=== PATIENT | male | born 1935 | race Asian ===

== ENCOUNTER 2019-11-17 16:12 | Inpatient (IN) | payer MEDICARE, OTHER ==
[~2019-11-17] VITALS: Ht 172.7 cm; Wt 83.0 kg
--- NOTE | 2019-11-17 16:27 | Emergency Room Report ---
History of Present Illness General Chief Complaint: Altered Level of Consciousness Source: Patient, EMS Present Illness HPI Disclaimer: Please note that this report is being documented using [employer] technology. This can lead to erroneous entry secondary to incorrect interpretation by the dictating instrument. HPI: 84-year-old male history of pancreatic cancer last chemotherapy session 1 week ago, diabetes presents for evaluation of shortness of breath and fever as well as weakness. He is primarily Georgian speaking and history was taken with the use of an pest locator. Patient was reportedly very weak and somewhat confused according to family. He went to see his PMD earlier today and after the visit found him so profoundly weak and confused. He was found to have a fever at home 100.4 degrees. EMS noted coughing and shortness of breath. Patient states that she was started today. Denies vomiting, diarrhea. Denies nasal congestion, shortness of breath, chest pain. PMH: Diabetes, pancreatic cancer PSH: Reviewed Allergies: Aspirin Social Hx: Reviewed Allergies: Coded Allergies: ASPIRIN (Verified Allergy, Unknown, 11/17/19) COVID-19 Screening Contact w/high risk pt: No Recent Travel to affected area: No Experienced COVID-19 symptoms?: Yes COVID-19 symptoms experienced: Fever (T>100.4F or >38C) COVID-19 Testing performed HORTICULTURAL SERVICES SUPERVISOR: No Review of Systems All Other Systems: negative except mentioned in HPI Physical Exam Vital Signs Date Time Temp Pulse Resp B/P (MAP) Pulse Ox O2 Delivery O2 Flow Rate FiO2 11/17/19 16:05 100.4 97 20 119/50 (73) 99 Room Air General: Awake awake, slightly confused though oriented to self, place, time HEENT: NC/AT. EOMI. Cardiovascular: RRR. S1 and S2 normal. No murmur appreciated Resp: Mild tachypnea, normal work of breathing, intermittent cough. Abdomen: Abdomen is soft, nondistended. Nontender Skin: Intact. No abrasions, laceration or rash over the exposed skin MSK: Normal tone and bulk. Moving all extremities. No obvious deformity. Neuro: Awake, slightly confused, oriented to self, place and time but not situation. Procedures Critical Care Time Critical Care Time Total critical care time: Approximately 31 minutes Due to a high probability of clinically significant, life threatening deterioration, the patient required the highest level of preparedness to intervene emergently and I personally spent this critical care time directly and personally managing the patient. This critical care time included obtaining a history, examining the patient, pulse oximetry, ordering and reviewing studies , ordering treatments, evaluating response to treatment and updating management plan as needed, frequent reassessment and discussion with other providers as well as arranging for ultimate disposition. This critical to care time was performed to assess and manage the high probability of life-threatening deterioration that could result in multiorgan failure. This critical care time is separate from the separately billable procedures and treating other patients. Medical Decision Making Diagnostic Impression: Primary Impression: Suspected 2019 novel coronavirus infection Additional Impressions: Sepsis KAITLYNN (acute kidney injury) Dehydration ER Course 84-year-old male presents for evaluation of fever and altered mental status. Patient is awake and alert though seems somewhat confused. He has difficulty with history unknown baseline. He arrives febrile and slightly tachycardic. Differential includes was not limited to viral syndrome, upper respiratory infection, novel coronavirus 19, pneumonia, bronchitis, UTI, dehydration, electrolyte abnormality, sepsis to name a few. EKG is nonischemic. Labs show an elevated white count. The patient was treated with empiric antibiotics. Chest x-ray does not show obvious sign of infiltrate. COVID-19 swab ordered and the patient will be kept in isolation. Initial lactate elevated and the patient receiving gentle IV fluids. Over concern of COVID-19 and flash pulmonary edema will provide gradual IV hydration as opposed to the 30 cc/kg sepsis bundle bolus. Patient will be admitted to panel physician. Laboratory Tests Test 11/17/19 16:45 11/17/19 18:05 11/17/19 18:10 White Blood Count 20.9 K/UL (4.8-10.8) H Red Blood Count 3.74 M/UL (4.70-6.10) L Hemoglobin 12.3 G/DL (14.2-18.0) L Hematocrit 37.4 % (42.0-52.0) L Mean Corpuscular Volume 100 FL (80-99) H Mean Corpuscular Hemoglobin 32.9 PG (27.0-31.0) H Mean Corpuscular Hemoglobin Concent 32.9 G/DL (32.0-36.0) Red Cell Distribution Width 18.3 % (11.6-14.8) H Platelet Count 239 K/UL (150-450) Mean Platelet Volume 7.0 FL (6.5-10.1) Neutrophils (%) (Auto) % (45.0-75.0) Lymphocytes (%) (Auto) % (20.0-45.0) Monocytes (%) (Auto) % (1.0-10.0) Eosinophils (%) (Auto) % (0.0-3.0) Basophils (%) (Auto) % (0.0-2.0) Differential Total Cells Counted 100 Neutrophils % (Manual) 77 % (45-75) H Lymphocytes % (Manual) 2 % (20-45) L Monocytes % (Manual) 10 % (1-10) Eosinophils % (Manual) 1 % (0-3) Basophils % (Manual) 0 % (0-2) Band Neutrophils 10 % (0-8) H Platelet Estimate Adequate Platelet Morphology Normal Polychromasia 1+ Anisocytosis 2+ Macrocytosis 1+ Prothrombin Time 17.4 SEC (9.30-11.50) H Prothrombin Time INR 1.6 (0.9-1.1) H Activated Partial Thromboplast Time 24 SEC (23-33) Sodium Level 137 MMOL/L (136-145) Potassium Level 4.3 MMOL/L (3.5-5.1) Chloride Level 101 MMOL/L (98-107) Carbon Dioxide Level 22 MMOL/L (21-32) Anion Gap 14 mmol/L (5-15) Blood Urea Nitrogen 31 mg/dL (7-18) H Creatinine 1.6 MG/DL (0.55-1.30) H Estimated Glomerular Filtration Rate 41.4 mL/min (>60) Glucose Level 210 MG/DL (74-106) H Lactic Acid Level 3.40 mmol/L (0.4-2.0) H Pending Uric Acid 4.9 MG/DL (2.6-7.2) Calcium Level 9.2 MG/DL (8.5-10.1) Phosphorus Level 3.1 MG/DL (2.5-4.9) Magnesium Level 2.2 MG/DL (1.8-2.4) Total Bilirubin 2.5 MG/DL (0.2-1.0) H Direct Bilirubin 1.1 MG/DL (0.0-0.3) H Aspartate Amino Transferase (AST) 53 U/L (15-37) H Alanine Aminotransferase (ALT) 67 U/L (12-78) Alkaline Phosphatase 154 U/L (46-116) H Total Creatine Kinase 72 U/L (26-308) Creatine Kinase MB < 0.5 NG/ML (0.0-3.6) Creatine Kinase MB Relative Index 0.6 Troponin I 0.000 ng/mL (0.000-0.056) Pro-B-Type Natriuretic Peptide 337 pg/mL (0-125) H Total Protein 7.3 G/DL (6.4-8.2) Albumin 3.5 G/DL (3.4-5.0) Globulin 3.8 g/dL Albumin/Globulin Ratio 0.9 (1.0-2.7) L Urine Color Brown Urine Appearance Slightly cloudy Urine pH 5 (4.5-8.0) Urine Specific [place] 1.015 (1.005-1.035) Urine Protein 2+ (NEGATIVE) H Urine Glucose (UA) 4+ (NEGATIVE) H Urine Ketones 1+ (NEGATIVE) H Urine Blood 1+ (NEGATIVE) H Urine Nitrite Negative (NEGATIVE) Urine Bilirubin 2+ (NEGATIVE) H Urine Ictotest Negative (NEGATIVE) Urine Urobilinogen 8 MG/DL (0.0-1.0) H Urine Leukocyte Esterase 1+ (NEGATIVE) H Urine RBC 2-4 /HPF (0 - 0) H Urine WBC 2-4 /HPF (0 - 0) Urine Squamous Epithelial Cells Occasional /LPF Urine Bacteria Few /HPF (NONE) Urine Mucus Many /LPF (NONE/OCC) H EKG Diagnostic Results EKG Time: 16:43 Rate: normal Rhythm: NSR ST Segments: no acute changes Other Impression Sinus rhythm, right bundle branch block pattern, difficult to interpret axis, no obvious ischemic changes. Rhythm Strip Diag. Results Rhythm Strip Time: 16:43 EP Interpretation: yes Rate: 90s Rhythm: NSR, no PVC's, no ectopy Chest X-Ray Diagnostic Results Chest X-Ray Diagnostic Results : Chest X-Ray Ordered: Yes # of Views/Limited/Complete: 1 View Indication: Shortness of Breath EP Interpretation: Yes Interpretation: no consolidation, no effusion, no pneumothorax, no acute cardiopulmonary disease Impression: No acute disease Electronically Signed by: Electronically signed by Dr. Dave Vernon Reevaluation Time: 19:40 Last Vital Signs Date Time Temp Pulse Resp B/P (MAP) Pulse Ox O2 Delivery O2 Flow Rate FiO2 11/17/19 16:05 100.4 97 20 119/50 (73) 99 Room Air Reevaluation Impression Sepsis reevaluation: I, Dr. Dave Vernon, reevaluated the patient Capillary refill: Less than 2 seconds Heart rate: 80s Respiratory rate: 19 Initial Lactate: 3.4 Repeat Lactate: 3.3 Pressors: Not indicated No signs of fluid overload Repeat lactate was obtained prior to the patient receiving full IV fluids. He continues to receive IV fluids. Fever improving. Patient received antibiotics. Will be admitted to panel physician in respiratory isolation over suspicions of COVID-19. Disposition: ADMITTED INPATIENT Condition: Serious Dave Vernon MD November 17, 2019 16:27
[2019-11-17 16:30] VITALS: BP 125/87
--- NOTE | 2019-11-17 16:30 | NUR ---
ED Nurse Note: Pt was brought in by ambulance for ALOC and weakness. Pt upon arrival is a&ox3, slovak speaking. Pt has history of unknown cancer. Pt has been placed in isolation room with COVID precautions.
[2019-11-17 17:05] LABS: HEMATOCRIT 37.4 % (42.0-52.0); HEMOGLOBIN 12.3 G/DL (14.2-18.0); MEAN CORPUSCULAR VOLUME 100 FL (80-99); PLATELET COUNT 239 K/UL (150-450); RED BLOOD COUNT 3.74 M/UL (4.70-6.10); RED CELL DISTRIBUTION WIDTH 18.3 % (11.6-14.8); WHITE BLOOD COUNT 20.9 K/UL (4.8-10.8)
[2019-11-17 17:14] LABS: INR 1.6 (0.9-1.1)
--- NOTE | 2019-11-17 17:15 | Diagnostic Imaging Report ---
Procedure: XRAY Chest 1v Reason for study: Reason For Exam: SOB Comparison films: None. FINDINGS: A single one view chest is obtained. Vascularity is normal. The lung dominguez are clear bilaterally. Cardiac and mediastinal silhouette are within normal limits. CP angles are sharp. Aorta is tortuous. IMPRESSION: NO ACUTE CARDIOPULMONARY DISEASE.
[2019-11-17 17:17] LABS: ANION GAP 14 mmol/L (5-15); BLOOD UREA NITROGEN 31 mg/dL (7-18); CALCIUM 9.2 MG/DL (8.5-10.1); CARBON DIOXIDE 22 MMOL/L (21-32); CHLORIDE 101 MMOL/L (98-107); CREATININE 1.6 MG/DL (0.55-1.30); POTASSIUM 4.3 MMOL/L (3.5-5.1); SODIUM 137 MMOL/L (136-145)
--- NOTE | 2019-11-17 17:22 | NUR ---
ED Nurse Note: Patient's family member called here @ [phone]. Sander Bailon
[2019-11-17 17:33] LABS: ALANINE AMINOTRANSFERASE 67 U/L (12-78); ALBUMIN 3.5 G/DL (3.4-5.0); ALBUMIN/GLOBULIN RATIO 0.9 (1.0-2.7); ALKALINE PHOSPHATASE 154 U/L (46-116); ASPARTATE AMINO TRANSFERASE 53 U/L (15-37); BILIRUBIN,TOTAL 2.5 MG/DL (0.2-1.0); CKMB < 0.5 NG/ML (0.0-3.6); CREATINE KINASE 72 U/L (26-308); PHOSPHORUS 3.1 MG/DL (2.5-4.9)
[2019-11-17 17:38] LABS: BILIRUBIN,DIRECT 1.1 MG/DL (0.0-0.3)
[2019-11-17] MEDS ORDERED: Vancomycin 1.5 GM in NS 275 ML IVPB ONE (17:45)
[2019-11-17] MEDS ORDERED: Piperacillin/Tazobactam 3.375 GM in NS 110 ML IVPB ONE (17:45)
--- NOTE | 2019-11-17 18:15 | NUR ---
ED Nurse Note: Lactic reflux sent.
[2019-11-17 18:17] LABS: APPEARANCE,URINE SLIGHTLY CLOUDY; BILIRUBIN, URINE 2+ (NEGATIVE); COLOR,URINE BROWN; GLUCOSE, URINE (UA) 4+ (NEGATIVE); KETONES,URINE 1+ (NEGATIVE); LEUKOCYTE ESTERASE ,URINE 1+ (NEGATIVE); NITRITE,URINE NEGATIVE (NEGATIVE); PH,URINE 5 (4.5-8.0); PROTEIN,URINE 2+ (NEGATIVE); UROBILINOGEN,URINE 8 MG/DL (0.0-1.0)
[2019-11-17] MEDS ORDERED: Acetaminophen 500mg (ES) tab ORAL ONE (18:30)
[2019-11-17] MEDS ORDERED: PANTOPRAZOLE SO40 MG ORAL (18:36)
[2019-11-17] MEDS ORDERED: AMLODIPINE BESYL5 MG ORAL (18:36)
[2019-11-17] MEDS ORDERED: OMEGA 3 1,0001 EACH PO (18:36)
[2019-11-17] MEDS ORDERED: VITAMIN D310 MC1 PO (18:36)
[2019-11-17] MEDS ORDERED: TRADJENTA5 MG PO (18:36)
[2019-11-17] MEDS ORDERED: FARXIGA10 MG PO (18:36)
[2019-11-17] MEDS ORDERED: GLIPIZIDE-METF1 EAC2 PO (18:36)
[2019-11-17 18:52] VITALS: BP 116/62
--- NOTE | 2019-11-17 19:10 | NUR ---
ED Nurse Note: Report received from MICHAEL Aguilera. Pt is resting in bed. NAD. Pt aware of admission to floor.
--- NOTE | 2019-11-17 19:55 | NUR ---
ED Nurse Note: Report given to MICHAEL Gutierrez.
--- NOTE | 2019-11-17 20:00 | NUR ---
ED Nurse Note: COVID swab completed and sent to lab.
--- NOTE | 2019-11-17 20:45 | NUR ---
ED Nurse Note: Pt is stable for transfer to tele unit at this time per ERMD. Pt is awake and alert and able to communicate needs. Pt is in no acute distress and vital signs are stable. Pt is ambulatory with assistance. Pt taken to the unit via gurney, connected to conveyor monitor by duy and RN. ISO precutions in place. IVs are patent and intact. Pt belongings sent with pt.
[2019-11-17 20:55] VITALS: BP 134/67
--- NOTE | 2019-11-17 20:55 | NUR ---
NURSE NOTES: Received pt from ED via gurney. Pt transferred to 219-1 without any incident. Received report from MICHAEL Diane. Pt is A/Ox3. [place] pt to room and unit. playground monitor is in placed. IV site intact, asymptomatic, and patent. Belongings list checked and signed. Bed is in the lowest position and locked. Call light and bedside table is within reach. No signs/symptoms of acute distress noted at this time. Received admission orders from Dr. Rey. Will note and carry out.
[2019-11-17] MEDS: NovoLOG Insulin Flexpen SUBQ SCH (21:15)
[2019-11-17] MEDS ORDERED: DiphenhydrAMINE 25mg Tab ORAL PRN (22:00)
[2019-11-17] MEDS ORDERED: Zolpidem 5mg tab ORAL PRN (22:00)
[2019-11-17] MEDS ORDERED: LORazepam 1mg tab ORAL PRN (22:00)
[2019-11-18] VITALS: BP 116/49
[2019-11-18 04:00] VITALS: BP 146/70
[2019-11-18] MEDS: Piperacillin/Tazobactam 3.375 GM in NS 110 ML IVPB SCH ×3 (05:39→20:48)
[2019-11-18] MEDS: NovoLOG Insulin Flexpen SUBQ SCH ×4 (06:26→20:45)
--- NOTE | 2019-11-18 07:36 | NUR ---
HAND-OFF: Report given to MICHAEL Uriarte. Plan of care endorsed.
[2019-11-18 07:46] LABS: HEMOGLOBIN 11.9 G/DL (14.2-18.0); MEAN CORPUSCULAR VOLUME 93 FL (80-99); PLATELET COUNT 187 K/UL (150-450); RED BLOOD COUNT 3.65 M/UL (4.70-6.10); RED CELL DISTRIBUTION WIDTH 16.2 % (11.6-14.8); WHITE BLOOD COUNT 13.4 K/UL (4.8-10.8)
[2019-11-18 07:55] LABS: ALANINE AMINOTRANSFERASE 63 U/L (12-78); ALBUMIN/GLOBULIN RATIO 0.9 (1.0-2.7); ALKALINE PHOSPHATASE 128 U/L (46-116); ANION GAP 11 mmol/L (5-15); ASPARTATE AMINO TRANSFERASE 40 U/L (15-37); BLOOD UREA NITROGEN 25 mg/dL (7-18); CALCIUM 8.1 MG/DL (8.5-10.1); CARBON DIOXIDE 22 MMOL/L (21-32); CHLORIDE 105 MMOL/L (98-107); CREATININE 1.1 MG/DL (0.55-1.30); POTASSIUM 3.7 MMOL/L (3.5-5.1); SODIUM 138 MMOL/L (136-145)
[2019-11-18 08:00] VITALS: BP 112/61
[2019-11-18 08:07] LABS: BILIRUBIN,DIRECT 0.7 MG/DL (0.0-0.3)
[2019-11-18] MEDS: Enoxaparin 40mg Inj SUBQ SCH (08:50)
--- NOTE | 2019-11-18 10:28 | Consultation ---
History of Present Illness General Chief Complaint: Altered Level of Consciousness Present Illness Allergies: Coded Allergies: ASPIRIN (Verified Allergy, Unknown, 11/17/19) Medication History Scheduled Amlodipine Besylate* (Amlodipine Besylate*), 5 MG ORAL DAILY, (Reported) Cholecalciferol (Vitamin D3) (Vitamin D3), Unknown Dose PO DAILY, (Reported) Dapagliflozin Propanediol (Farxiga), 10 MG PO DAILY, (Reported) Glipizide/Metformin Hcl (Glipizide-Metformin 5-500 Mg), 1 EACH PO BID, (Reported ) Linagliptin (Tradjenta), 5 MG PO DAILY, (Reported) [place]-3 Fatty Acids/Fish Oil ([place] 3 1,000 Mg Softgel), 1 EACH PO DAILY, ( Reported) Pantoprazole* (Pantoprazole*), 40 MG ORAL DAILY, (Reported) Patient History Healthcare decision maker Resuscitation status Advanced Directive on File Physical Exam Last 24 Hour Vital Signs Date Time Temp Pulse Resp B/P (MAP) Pulse Ox O2 Delivery O2 Flow Rate FiO2 11/18/19 08:50 83 112/61 11/18/19 04:00 72 11/18/19 04:00 97.4 85 19 146/70 (95) 98 11/18/19 00:00 59 11/18/19 00:00 97.8 60 19 116/49 (71) 99 11/17/19 21:06 Room Air 11/17/19 20:55 97.5 60 17 134/67 (89) 96 11/17/19 20:45 98.1 67 18 111/64 96 Room Air 97 11/17/19 18:52 99.8 88 19 116/62 98 Room Air 11/17/19 18:45 99.8 11/17/19 16:30 100.4 88 20 125/87 98 Room Air 11/17/19 16:30 91 18 Room Air 97 11/17/19 16:05 100.4 97 20 119/50 (73) 99 Room Air Intake and Output 11/17/19 11/18/19 19:00 07:00 Intake Total 0 ml 250 ml Balance 0 ml 250 ml Intake Oral 0 ml 250 ml # Voids 4 Laboratory Tests Test 11/17/19 16:45 11/17/19 18:05 11/17/19 18:10 11/18/19 06:46 White Blood Count 20.9 K/UL (4.8-10.8) H 13.4 K/UL (4.8-10.8) H Red Blood Count 3.74 M/UL (4.70-6.10) L 3.65 M/UL (4.70-6.10) L Hemoglobin 12.3 G/DL (14.2-18.0) L 11.9 G/DL (14.2-18.0) L Hematocrit 37.4 % (42.0-52.0) L 34.0 % (42.0-52.0) L Mean Corpuscular Volume 100 FL (80-99) H 93 FL (80-99) Mean Corpuscular Hemoglobin 32.9 PG (27.0-31.0) H 32.5 PG (27.0-31.0) H Mean Corpuscular Hemoglobin Concent 32.9 G/DL (32.0-36.0) 34.9 G/DL (32.0-36.0) Red Cell Distribution Width 18.3 % (11.6-14.8) H 16.2 % (11.6-14.8) H Platelet Count 239 K/UL (150-450) 187 K/UL (150-450) Mean Platelet Volume 7.0 FL (6.5-10.1) 5.6 FL (6.5-10.1) L Neutrophils (%) (Auto) % (45.0-75.0) % (45.0-75.0) Lymphocytes (%) (Auto) % (20.0-45.0) % (20.0-45.0) Monocytes (%) (Auto) % (1.0-10.0) % (1.0-10.0) Eosinophils (%) (Auto) % (0.0-3.0) % (0.0-3.0) Basophils (%) (Auto) % (0.0-2.0) % (0.0-2.0) Differential Total Cells Counted 100 Neutrophils % (Manual) 77 % (45-75) H Pending Lymphocytes % (Manual) 2 % (20-45) L Pending Monocytes % (Manual) 10 % (1-10) Eosinophils % (Manual) 1 % (0-3) Basophils % (Manual) 0 % (0-2) Band Neutrophils 10 % (0-8) H Platelet Estimate Adequate Pending Platelet Morphology Normal Pending Polychromasia 1+ Anisocytosis 2+ Macrocytosis 1+ Prothrombin Time 17.4 SEC (9.30-11.50) H Prothromb Time International Ratio 1.6 (0.9-1.1) H Activated Partial Thromboplast Time 24 SEC (23-33) Sodium Level 137 MMOL/L (136-145) 138 MMOL/L (136-145) Potassium Level 4.3 MMOL/L (3.5-5.1) 3.7 MMOL/L (3.5-5.1) Chloride Level 101 MMOL/L (98-107) 105 MMOL/L (98-107) Carbon Dioxide Level 22 MMOL/L (21-32) 22 MMOL/L (21-32) Anion Gap 14 mmol/L (5-15) 11 mmol/L (5-15) Blood Urea Nitrogen 31 mg/dL (7-18) H 25 mg/dL (7-18) H Creatinine 1.6 MG/DL (0.55-1.30) H 1.1 MG/DL (0.55-1.30) Estimat Glomerular Filtration Rate 41.4 mL/min (>60) > 60 mL/min (>60) Glucose Level 210 MG/DL (74-106) H 128 MG/DL (74-106) H Lactic Acid Level 3.40 mmol/L (0.4-2.0) H 3.30 mmol/L (0.66-2.22) H 2.90 mmol/L (0.4-2.0) H Uric Acid 4.9 MG/DL (2.6-7.2) Calcium Level 9.2 MG/DL (8.5-10.1) 8.1 MG/DL (8.5-10.1) L Phosphorus Level 3.1 MG/DL (2.5-4.9) Magnesium Level 2.2 MG/DL (1.8-2.4) Total Bilirubin 2.5 MG/DL (0.2-1.0) H 2.0 MG/DL (0.2-1.0) H Direct Bilirubin 1.1 MG/DL (0.0-0.3) H 0.7 MG/DL (0.0-0.3) H Aspartate Amino Transf (AST/SGOT) 53 U/L (15-37) H 40 U/L (15-37) H Alanine Aminotransferase (ALT/SGPT) 67 U/L (12-78) 63 U/L (12-78) Alkaline Phosphatase 154 U/L (46-116) H 128 U/L (46-116) H Total Creatine Kinase 72 U/L (26-308) Creatine Kinase MB < 0.5 NG/ML (0.0-3.6) Creatine Kinase MB Relative Index 0.6 Troponin I 0.000 ng/mL (0.000-0.056) Pro-B-Type Natriuretic Peptide 337 pg/mL (0-125) H Total Protein 7.3 G/DL (6.4-8.2) 6.3 G/DL (6.4-8.2) L Albumin 3.5 G/DL (3.4-5.0) 3.0 G/DL (3.4-5.0) L Globulin 3.8 g/dL 3.3 g/dL Albumin/Globulin Ratio 0.9 (1.0-2.7) L 0.9 (1.0-2.7) L Urine Color Brown Urine Appearance Slightly cloudy Urine pH 5 (4.5-8.0) Urine Specific [place] 1.015 (1.005-1.035) Urine Protein 2+ (NEGATIVE) H Urine Glucose (UA) 4+ (NEGATIVE) H Urine Ketones 1+ (NEGATIVE) H Urine Blood 1+ (NEGATIVE) H Urine Nitrite Negative (NEGATIVE) Urine Bilirubin 2+ (NEGATIVE) H Urine Ictotest Negative (NEGATIVE) Urine Urobilinogen 8 MG/DL (0.0-1.0) H Urine Leukocyte Esterase 1+ (NEGATIVE) H Urine RBC 2-4 /HPF (0 - 0) H Urine WBC 2-4 /HPF (0 - 0) Urine Squamous Epithelial Cells Occasional /LPF Urine Bacteria Few /HPF (NONE) Urine Mucus Many /LPF (NONE/OCC) H CA 19-9 Antigen Pending Height (Feet): 5 Height (Inches): 8.00 Weight (Pounds): 198 Medications Current Medications Medications (Trade) Dose Ordered Sig/Jack Route PRN Reason Start Time Stop Time Status Last Admin Dose Admin Acetaminophen (Tylenol) 650 mg Q4H PRN ORAL FEVER >100.5/Mild Pain 11/17/19 21:15 12/17/19 21:14 Amlodipine Besylate (Norvasc) 5 mg DAILY ORAL 11/18/19 09:00 12/18/19 08:59 11/18/19 08:50 Dextrose (Dextrose 50%) 25 ml Q30M PRN IV Hypoglycemia 11/17/19 21:15 02/15/20 21:14 Dextrose (Dextrose 50%) 50 ml Q30M PRN IV Hypoglycemia 11/17/19 21:15 02/15/20 21:14 Diphenhydramine HCl (Benadryl) 25 mg Q8HR PRN ORAL Itching 11/17/19 22:00 12/17/19 21:59 Enoxaparin Sodium (Lovenox) 40 mg DAILY SUBQ 11/18/19 09:00 02/16/20 08:59 11/18/19 08:50 Insulin Aspart (NovoLOG) BEFORE MEALS AND HS SUBQ 11/17/19 21:15 02/15/20 21:14 Lorazepam (Ativan) 1 mg Q6H PRN ORAL For Anxiety 11/17/19 22:00 11/24/19 21:59 Ondansetron HCl (Zofran) 4 mg Q6H PRN IVP Nausea & Vomiting 11/17/19 21:15 12/17/19 21:14 Pantoprazole (Protonix) 40 mg DAILY ORAL 11/18/19 09:00 12/18/19 08:59 11/18/19 08:50 Piperacillin Sod/ Tazobactam Sod 3.375 gm/Sodium Chloride 110 ml @ 27.5 mls/hr EVERY 8 HOURS IVPB 11/18/19 06:00 11/23/19 05:59 11/18/19 05:39 Sodium Chloride 1,000 ml @ 80 mls/hr [id number] IV 11/17/19 22:00 11/18/19 22:59 11/17/19 22:04 Zolpidem Tartrate (Ambien) 5 mg HSPRN PRN ORAL Insomnia 11/17/19 22:00 11/24/19 21:59 Assessment/Plan Assessment/Plan: Hematology Consultation REQ MD [facility] Pancreatic cancer DOS 11/18/2019 ID 84-year-old male history of pancreatic cancer last chemotherapy session 1 week ago, diabetes presents for evaluation of shortness of breath and fever as well as weakness. He is primarily Croatian speaking and history was taken with the use of an administrative assistant receptionist. Patient was reportedly very weak and somewhat confused according to family. He went to see his PMD earlier today and after the visit found him so profoundly weak and confused. He was found to have a fever at home 100.4 degrees. EMS noted coughing and shortness of breath. Patient states that she was started today. Denies vomiting, diarrhea. Denies nasal congestion, shortness of breath, chest pain. Since last night has received zosyn, cxr neg, lactic acid >3, have ordered repeat, to see ID shortly PMH: Diabetes, pancreatic cancer PSH: Reviewed Allergies: Aspirin Social Hx: Reviewed Coded Allergies: ASPIRIN (Verified Allergy, Unknown, 11/17/19) COVID-19 Screening Contact w/high risk pt: No Recent Travel to affected area: No Experienced COVID-19 symptoms?: Yes COVID-19 symptoms experienced: Fever (T>100.4F or >38C) COVID-19 Testing performed DOMINATRIX: No ROS (review of systems): Constitutional: No fever, no chills, no night sweats, no fatigue Skin: No rashes, lumps, itchiness, dryness HEENT: No OSHEA, ear ache, visual changes, double vision, nosebleeds Breasts: No lumps, pain, discharge Pulmonary: No cough, sputum, shortness of breath, coughing up blood Cardiovascular: No chest pain, tightness, palpitations, syncope, PND GI: No nausea, vomiting, diarrhea, melena, hematochezia, change in appetite, : No dysuria, frequency, urgency, urinary incontinence, foamy urine Musculoskeletal: No joint swelling or muscle pain, trauma, back pain Neurologic: No dizziness, fainting, seizures, changes in smell or taste Psychiatric: No nervousness, stress, or depression, anxiety, hallucinations Endocrine: No weight change, heat or cold intolerance, tremor, insomnia Physical Exam: Vitals: reviewed General: NAD HEENT: nc, at Neck: supple Chest: clear breath sounds bilaterally Cardiovascular: RRR, no s3, s4 Abdomen: soft, nontender, nd Extremities: no cce, normal range of motion Neuro: alert and oriented Labs noted Imaging noted Assesment and Recs # Pancreatic cancer that is metastatic, has been on chemotherapy and getting it every 2 weeks --> rule out sepsis, likely is what she has --> imaging has been noted, cxr neg --> abx as per id, lactate trend --> ca 19.9 ordered --> on zosyn # Anemia of chronic disease due to underlying chronic medical issues, multifactorial v Gi bleed --> Anemia workup has been ordered, rule out gi bleed --> No evidence of hemolysis is noted, peripheral smear has been reviewed. --> Hgb goal >7. Transfuse prn. --> Epogen or iron at this time is not particularly indicated --> Medications have been reviewed --> low threshold for gi evaluation in case has occult + # Leucoytosis that is related to elevated wbc, sepsis --> as per id --> smear noted --> likely chemo at this time myelosuppresive of immune system # Suspected 2019 novel coronavirus infection --> iso as per id # KAITLYNN (acute kidney injury) --> per rneal # Dehydration # Dvt ppx lovenox sq The timing of this note does not necessarily reflect the time of the patient was seen. Greatly appreciate consultation. Andrew Rey MD November 18, 2019 10:28
[2019-11-18 12:00] VITALS: BP 122/68
[2019-11-18 15:57] VITALS: BP 138/58
--- NOTE | 2019-11-18 16:18 | NUR ---
CASE MANAGEMENT:REVIEW 84 YR OLD MALE BIBA FROM HOME CC: AMS AND WEAKNESS PMH: GASTRIC AND PANCREATIC CANCER SI: SEPSIS. SUSPECTED COVID 19 KAITLYNN. DEHYDRATION 100.4 97 20 119/50 99% ON RA WBC+20.9 BUN+31 CR+1.6 TBILI+2.5/DBILI+1.1 IS: 1L NS BOLUS IV VANCOMYCIN IV ZOSYN CHEST XRAY BLOOD CX : TO TELEMETRY DCP: FROM HOME
--- NOTE | 2019-11-18 17:44 | Consultation ---
DATE OF CONSULTATION: 11/18/2019 INFECTIOUS DISEASES CONSULTATION CONSULTING PHYSICIAN: Nayana Brown MD. REFERRING PHYSICIAN: Toni Keane DO. REASON FOR CONSULTATION: Fever. HISTORY OF PRESENTING ILLNESS: This is an 84-year-old gentleman with history of pancreatic cancer, status post chemotherapy, diabetes, who came in with fever along with shortness of breath. He also had some confusion and an Infectious Diseases consultation has been obtained for possibility of COVID-19. PAST MEDICAL HISTORY: 1. History of pancreatic cancer. 2. Diabetes. SOCIAL HISTORY: Unknown. FAMILY HISTORY: Unknown. REVIEW OF SYSTEMS: RESPIRATORY: He has fever. He has shortness of breath. He did have cough. No chest pain. CARDIAC: No chest pain. No palpitation. No dizziness. No syncope. GASTROINTESTINAL: No nausea. No vomiting. No diarrhea. MEDICATIONS: As an inpatient, he is on enoxaparin, amlodipine, Protonix, Zosyn, Ambien, Ativan, Benadryl, insulin, Tylenol, Zofran. ALLERGIES: To aspirin noted. PHYSICAL EXAMINATION: VITAL SIGNS: Temperature 97.4, T-max of 100.4, pulse of 83, respiratory rate of 19, blood pressure 112/61, O2 saturation of 98% on room air. Examination deferred due to possibility of COVID-19 LABORATORY AND DIAGNOSTIC DATA: White count of 20.9 on 11/17/2019, white count of 13.4 today, hemoglobin 11.9, hematocrit 34, MCV 93, platelet count of 187, neutrophils of 86%. Sodium 138, potassium 3.7, chloride 105, bicarb 22, BUN 25, creatinine 1.1, glucose 128, calcium 8.1. Total bilirubin , direct bilirubin 0.7. AST 40, ALT 63, alkaline phosphatase 128. Total protein 6.3, albumin of 3. UA showing 2 to 4 white cells. Chest x-ray showing no acute disease. ASSESSMENT: This is an 84-year-old gentleman with history of pancreatic cancer and diabetes, who comes in with fever, cough and shortness of breath, would like to rule out: 1. COVID-19 pneumonia as a possibility. 2. Would like to rule out pneumonia as a possibility. 3. Diabetes. 4. Pancreatic cancer. PLAN: 1. Continue Zosyn. 2. We will follow up cultures. 3. We will follow up on COVID-19 testing. 4. Continue isolation. I would like to thank, Dr. Toni Keane, for this consultation. Nayana Brown M.D. DR: MICHELLE JOB#: [id number] CC: Toni Keane D.O.
--- NOTE | 2019-11-18 19:15 | NUR ---
NURSE NOTES: Patient received from MICHAEL Uriarte. Patient awake, alert, and responsive. Mostly azeri speaking but able to understand basic solomon islander. Seen resting on bed. Reminded to use the call light whenever he will use his bedside commode due to his unsteady gait. IV intact and flushed; IVF running at a prescribed rate. On room air, saturating well. No complaints of pain or discomfort at this time. No signs of shortness of breath or acute distress. skin is intact. bed in lowest position, brakes engaged and locked. Call light placed within reach. Will continue to monitor.
--- NOTE | 2019-11-18 19:43 | NUR ---
HAND-OFF: Report given to MICHAEL Jimenes.
[2019-11-18 20:00] VITALS: BP 112/51
--- NOTE | 2019-11-18 21:00 | NUR ---
NURSE NOTES: Patient moved from 219-2 to 201-1 with another staff member to be closer to the nurse's station to prevent falls. Patient stable. all belongings transferred with the patient. IVf running at a prescribed rate. Call light placed within reach. Reminded patient to use call light when he wants to use the bedside commode. Will continue to monitor.
--- NOTE | 2019-11-18 21:59 | History and Physical Report ---
DATE OF ADMISSION: 11/17/2019 DATE AND TIME SEEN: 11/18/2019 at 1 p.m. CONSULTANTS: 1. Yvan Rey MD. 2. Oz Maier MD. 3. Nayana Brown MD. CHIEF COMPLAINT: Altered mental status, fever, weakness. BRIEF HISTORY: This is an 84-year-old male presented to [facility] last night with above-mentioned diagnoses. He does have history of pancreatic cancer, on chemo. He is very weak and altered and also has some cough and fever. He was admitted to telemetry for the above for rule out COVID as well. Currently, calm in room, sleepy, not talking much. REVIEW OF SYSTEMS: Unavailable. PAST MEDICAL HISTORY: Diabetes, pancreatic cancer. PAST SURGICAL HISTORY: Unknown. MEDICATIONS: Include enoxaparin, amlodipine, Zosyn, zolpidem, lorazepam, insulin, Tylenol, Zofran, vancomycin. ALLERGIES: Aspirin. SOCIAL HISTORY: Unable to obtain secondary to patient's condition. PHYSICAL EXAMINATION: GENERAL: Lethargic in bed, not really answering questions. VITAL SIGNS: Temperature is 97 degrees, pulse 85, respirations 18, blood pressure 112/61. GENERAL: Lethargic, sleepy. HEENT: Normocephalic, atraumatic. NECK: Trachea midline. CARDIOVASCULAR: No peripheral edema. PULMONARY: Slight short of breath. ABDOMEN: No apparent wounds. EXTREMITIES: . LABORATORY DATA: Labs at this time show white count 13, hemoglobin and hematocrit 11/34, platelets 187. BMP show BUN 25, glucose 128, calcium 8.1. Albumin 3.0. INR is 1.6. Urinalysis show 1+ leukocyte esterase. ASSESSMENT: 1. Weakness. 2. Altered mental status. 3. Fever. 4. Cough. 5. Rule out COVID. 6. Pancreatic cancer, on chemo. 7. UTI. 8. Leukocytosis. 9. Malnutrition. 10. Diabetes. 11. Anemia. PLAN: 1. O2, pulmonary treatment as needed. 2. Antibiotic per Infectious Disease. 3. Blood pressure, blood sugar, pain control. 4. Dietary followup. 5. CBC, BMP in the morning. Toni Keane D.O. DR: HAILY JOB#: [id number] CC:
[2019-11-19] VITALS: BP 115/54
--- NOTE | 2019-11-19 02:23 | NUR ---
NURSE NOTES: Patient asleep on bed. No signs of acute distress or shortness of breath. IVF running at a prescribed rate. Bed rails raised x3. Bed in lowest position, brakes engaged and locked. Call light placed within reach. Bed alarm on. Will continue to monitor.
--- NOTE | 2019-11-19 02:44 | Consultation ---
DATE OF CONSULTATION: 11/18/2019 PULMONARY CONSULTATION CONSULTING PHYSICIAN: Oz Maier MD. HISTORY OF PRESENT ILLNESS: This is an 84-year-old male with a history of pancreatic carcinoma, diabetes mellitus who came to the hospital with shortness of breath. He is Latvian speaking, unable to answer any questions except with Latvian paratransit driver. He reports weakness and apparently is confused as well. He is also found to be febrile. He also was noted to be coughing and shortness of breath. PAST MEDICAL HISTORY: Diabetes mellitus, pancreatic carcinoma on chemotherapy. ALLERGIES: Aspirin. SOCIAL HISTORY: No history of alcohol or tobacco usage. PHYSICAL EXAMINATION: GENERAL: Reveals an 84-year-old male. HEENT: Unremarkable. CHEST: Decreased breath sounds bilaterally. ABDOMEN: Soft. EXTREMITIES: There is no edema. VITAL SIGNS: O2 saturation 97% on room air, blood pressure is 120/60, heart rate 74, respirations 18, he is afebrile. LABORATORY DATA: Lab testing shows white count 20.9, now 13.4, hemoglobin 11.9, platelet count is 187,000. Lactic acid 3.3, now 2.9. Coags, INR 1.6. X-ray chest shows clear lung dominguez bilaterally. IMPRESSION: 1. Leukocytosis. 2. Pancreatic cancer. 3. Diabetes mellitus. DISCUSSION: Do not suspect pneumonia. Agree with empiric antibiotics. Hematology/Oncology consultation noted. We will follow carefully as pulmonary enterprise resource planning consultant. We will order oxygen and pulmonary hygiene. Await COVID-19 swab. We will follow. Oz Maier M.D. DR: VALDEMAR JOB#: [id number] CC:
[2019-11-19 03:58] LABS: BASOPHILS % (AUTO) 0.4 % (0.0-2.0); EOSINOPHILS % (AUTO) 5.8 % (0.0-3.0); HEMATOCRIT 30.8 % (42.0-52.0); HEMOGLOBIN 11.3 G/DL (14.2-18.0); MEAN CORPUSCULAR VOLUME 91 FL (80-99); MONOCYTES % (AUTO) 13.2 % (1.0-10.0); NEUTROPHILS % (AUTO) 74.6 % (45.0-75.0); PLATELET COUNT 182 K/UL (150-450); RED BLOOD COUNT 3.38 M/UL (4.70-6.10); RED CELL DISTRIBUTION WIDTH 15.8 % (11.6-14.8); WHITE BLOOD COUNT 12.4 K/UL (4.8-10.8)
[2019-11-19 04:00] VITALS: BP 104/56
[2019-11-19 04:08] LABS: ANION GAP 9 mmol/L (5-15); BLOOD UREA NITROGEN 24 mg/dL (7-18); CALCIUM 7.6 MG/DL (8.5-10.1); CARBON DIOXIDE 23 MMOL/L (21-32); CHLORIDE 108 MMOL/L (98-107); POTASSIUM 3.6 MMOL/L (3.5-5.1); SODIUM 140 MMOL/L (136-145)
[2019-11-19] MEDS: Piperacillin/Tazobactam 3.375 GM in NS 110 ML IVPB SCH ×3 (05:09→21:03)
[2019-11-19] MEDS: NovoLOG Insulin Flexpen SUBQ SCH ×4 (05:15→21:03)
--- NOTE | 2019-11-19 07:09 | NUR ---
HAND-OFF: Report given to MICHAEL Uriarte. Patient stable. Endorsed patient's pending covid swab.
--- NOTE | 2019-11-19 07:10 | NUR ---
NURSE NOTES: Received patient from Yudy RODRIGUEZ. Patient is in bed resting, denies any pain at this time. No s/s of respiratory or acute distress noted. IV is intact and patent running Zosyn at this time. Bed is in lowest position, brakes engaged for safety. Call light is within easy reach. Will continue with the plan of care.
[2019-11-19 08:00] VITALS: BP 112/55
--- NOTE | 2019-11-19 08:17 | General Progress Note ---
Assessment/Plan Problem List: (1) Pancreatic cancer ICD Codes: C25.9 - Malignant neoplasm of pancreas, unspecified SNOMED: 651820681 (2) Weak ICD Codes: R53.1 - Weakness SNOMED: 54119807 (3) AMS (altered mental status) ICD Codes: R41.82 - Altered mental status, unspecified SNOMED: 230394568 (4) Fever ICD Codes: R50.9 - Fever, unspecified SNOMED: 956599707 (5) UTI (urinary tract infection) ICD Codes: N39.0 - Urinary tract infection, site not specified SNOMED: 08456531 (6) Anemia ICD Codes: D64.9 - Anemia, unspecified SNOMED: 693371829 (7) Malnutrition ICD Codes: E46 - Unspecified protein-calorie malnutrition SNOMED: 58337371 (8) Diabetes ICD Codes: E11.9 - Type 2 diabetes mellitus without complications SNOMED: 34496597 (9) Suspected 2019 novel coronavirus infection ICD Codes: Z20.828 - Contact with and (suspected) exposure to other viral communicable diseases SNOMED: 752438645 (10) Sepsis ICD Codes: A41.9 - Sepsis, unspecified organism SNOMED: 78849208 Status: unchanged Assessment/Plan: pt diet abx cbc bmp am Subjective Constitutional: Reports: weakness Allergies: Coded Allergies: ASPIRIN (Verified Allergy, Unknown, 11/17/19) All Systems: reviewed and negative except above Subjective sleepy calm Objective Last 24 Hour Vital Signs Date Time Temp Pulse Resp B/P (MAP) Pulse Ox O2 Delivery O2 Flow Rate FiO2 11/19/19 08:02 Room Air 11/19/19 04:00 72 11/19/19 04:00 98.2 82 16 104/56 (72) 96 11/19/19 00:00 98.9 76 17 115/54 (74) 94 11/19/19 00:00 68 11/18/19 21:00 Room Air 11/18/19 20:00 99.3 79 16 112/51 (71) 94 11/18/19 20:00 86 11/18/19 16:00 87 11/18/19 15:57 98.8 79 18 138/58 (84) 96 11/18/19 12:00 71 11/18/19 12:00 96.8 71 18 122/68 (86) 97 11/18/19 09:00 Room Air 11/18/19 08:50 83 112/61 Intake and Output 11/18/19 11/19/19 19:00 07:00 Intake Total 720 ml 240 ml Output Total 450 ml Balance 270 ml 240 ml Intake Oral 720 ml 240 ml Output Urine Total 450 ml # Voids 2 1 Laboratory Tests 11/19/19 03:23: White Blood Count 12.4H, Red Blood Count 3.38L, Hemoglobin 11.3L, Hematocrit 30.8L, Mean Corpuscular Volume 91, Mean Corpuscular Hemoglobin 33.5H, Mean Corpuscular Hemoglobin Concent 36.8H, Red Cell Distribution Width 15.8H, Platelet Count 182, Mean Platelet Volume 6.3L, Neutrophils (%) (Auto) 74.6, Lymphocytes (%) (Auto) 6.0L, Monocytes (%) (Auto) 13.2H, Eosinophils (%) (Auto) 5.8H, Basophils (%) (Auto) 0.4, Sodium Level 140, Potassium Level 3.6, Chloride Level 108H, Carbon Dioxide Level 23, Anion Gap 9, Blood Urea Nitrogen 24H, Creatinine 1.0, Estimat Glomerular Filtration Rate > 60, Glucose Level 134H, Calcium Level 7.6L Height (Feet): 5 Height (Inches): 8.00 Weight (Pounds): 183 General Appearance: lethargic EENT: normal ENT inspection Neck: normal alignment Cardiovascular: normal rate, regular rhythm Respiratory/Chest: no respiratory distress, no accessory muscle use Extremities: normal inspection Skin: normal pigmentation Toni Keane DO November 19, 2019 08:17
--- NOTE | 2019-11-19 08:28 | Hematology/Onc Progress Note ---
Assessment/Plan Assessment/Plan Assessment and Recs # Pancreatic cancer that is metastatic, has been on chemotherapy and getting it every 2 weeks --> rule out sepsis, likely is what she has --> imaging has been noted, cxr neg --> abx as per id, lactate trend --> ca 19.9 ordered --> on zosyn # Anemia of chronic disease due to underlying chronic medical issues, multifactorial v Gi bleed --> Anemia workup has been ordered, rule out gi bleed --> No evidence of hemolysis is noted, peripheral smear has been reviewed. --> Hgb goal >7. Transfuse prn. 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 Greatly appreciate consultation. Subjective Allergies: Coded Allergies: ASPIRIN (Verified Allergy, Unknown, 11/17/19) Subjective 11/18 tele, pending covid swab, iv abx, room air Objective Objective Current Medications Medications (Trade) Dose Ordered Sig/Jack Route PRN Reason Start Time Stop Time Status Last Admin Dose Admin Acetaminophen (Tylenol) 650 mg Q4H PRN ORAL FEVER >100.5/Mild Pain 11/17/19 21:15 12/17/19 21:14 Amlodipine Besylate (Norvasc) 5 mg DAILY ORAL 11/18/19 09:00 12/18/19 08:59 11/18/19 08:50 Dextrose (Dextrose 50%) 25 ml Q30M PRN IV Hypoglycemia 11/17/19 21:15 02/15/20 21:14 Dextrose (Dextrose 50%) 50 ml Q30M PRN IV Hypoglycemia 11/17/19 21:15 02/15/20 21:14 Diphenhydramine HCl (Benadryl) 25 mg Q8HR PRN ORAL Itching 11/17/19 22:00 12/17/19 21:59 Enoxaparin Sodium (Lovenox) 40 mg DAILY SUBQ 11/18/19 09:00 02/16/20 08:59 11/18/19 08:50 Insulin Aspart (NovoLOG) BEFORE MEALS AND HS SUBQ 11/17/19 21:15 02/15/20 21:14 11/18/19 20:45 Lorazepam (Ativan) 1 mg Q6H PRN ORAL For Anxiety 11/17/19 22:00 11/24/19 21:59 Ondansetron HCl (Zofran) 4 mg Q6H PRN IVP Nausea & Vomiting 11/17/19 21:15 12/17/19 21:14 Pantoprazole (Protonix) 40 mg DAILY ORAL 11/18/19 09:00 12/18/19 08:59 11/18/19 08:50 Piperacillin Sod/ Tazobactam Sod 3.375 gm/Sodium Chloride 110 ml @ 27.5 mls/hr EVERY 8 HOURS IVPB 11/18/19 06:00 11/23/19 05:59 11/19/19 05:09 Zolpidem Tartrate (Ambien) 5 mg HSPRN PRN ORAL Insomnia 11/17/19 22:00 11/24/19 21:59 Last 24 Hour Vital Signs Date Time Temp Pulse Resp B/P (MAP) Pulse Ox O2 Delivery O2 Flow Rate FiO2 11/19/19 08:02 Room Air 11/19/19 04:00 72 11/19/19 04:00 98.2 82 16 104/56 (72) 96 11/19/19 00:00 98.9 76 17 115/54 (74) 94 11/19/19 00:00 68 11/18/19 21:00 Room Air 11/18/19 20:00 99.3 79 16 112/51 (71) 94 11/18/19 20:00 86 11/18/19 16:00 87 11/18/19 15:57 98.8 79 18 138/58 (84) 96 11/18/19 12:00 71 11/18/19 12:00 96.8 71 18 122/68 (86) 97 11/18/19 09:00 Room Air 11/18/19 08:50 83 112/61 11/18/19 08:00 97.5 85 18 112/61 (78) 95 11/18/19 04:00 72 11/18/19 04:00 97.4 85 19 146/70 (95) 98 11/18/19 00:00 59 11/18/19 00:00 97.8 60 19 116/49 (71) 99 11/17/19 21:06 Room Air 11/17/19 20:55 97.5 60 17 134/67 (89) 96 11/17/19 20:45 98.1 67 18 111/64 96 Room Air 97 11/17/19 18:52 99.8 88 19 116/62 98 Room Air 11/17/19 18:45 99.8 11/17/19 16:30 100.4 88 20 125/87 98 Room Air 11/17/19 16:30 91 18 Room Air 97 11/17/19 16:05 100.4 97 20 119/50 (73) 99 Room Air Intake and Output 11/18/19 11/19/19 19:00 07:00 Intake Total 720 ml 240 ml Output Total 450 ml Balance 270 ml 240 ml Intake Oral 720 ml 240 ml Output Urine Total 450 ml # Voids 2 1 Labs Test 11/17/19 16:45 11/17/19 18:05 11/17/19 18:10 11/18/19 06:46 White Blood Count 20.9 K/UL (4.8-10.8) 13.4 K/UL (4.8-10.8) Red Blood Count 3.74 M/UL (4.70-6.10) 3.65 M/UL (4.70-6.10) Hemoglobin 12.3 G/DL (14.2-18.0) 11.9 G/DL (14.2-18.0) Hematocrit 37.4 % (42.0-52.0) 34.0 % (42.0-52.0) Mean Corpuscular Volume 100 FL (80-99) 93 FL (80-99) Mean Corpuscular Hemoglobin 32.9 PG (27.0-31.0) 32.5 PG (27.0-31.0) Mean Corpuscular Hemoglobin Concent 32.9 G/DL (32.0-36.0) 34.9 G/DL (32.0-36.0) Red Cell Distribution Width 18.3 % (11.6-14.8) 16.2 % (11.6-14.8) Platelet Count 239 K/UL (150-450) 187 K/UL (150-450) Mean Platelet Volume 7.0 FL (6.5-10.1) 5.6 FL (6.5-10.1) Neutrophils (%) (Auto) % (45.0-75.0) % (45.0-75.0) Lymphocytes (%) (Auto) % (20.0-45.0) % (20.0-45.0) Monocytes (%) (Auto) % (1.0-10.0) % (1.0-10.0) Eosinophils (%) (Auto) % (0.0-3.0) % (0.0-3.0) Basophils (%) (Auto) % (0.0-2.0) % (0.0-2.0) Differential Total Cells Counted 100 100 Neutrophils % (Manual) 77 % (45-75) 86 % (45-75) Lymphocytes % (Manual) 2 % (20-45) 6 % (20-45) Monocytes % (Manual) 10 % (1-10) 6 % (1-10) Eosinophils % (Manual) 1 % (0-3) 2 % (0-3) Basophils % (Manual) 0 % (0-2) 0 % (0-2) Band Neutrophils 10 % (0-8) 0 % (0-8) Platelet Estimate Adequate Adequate Platelet Morphology Normal Normal Polychromasia 1+ Anisocytosis 2+ 1+ Macrocytosis 1+ Prothrombin Time 17.4 SEC (9.30-11.50) Prothromb Time International Ratio 1.6 (0.9-1.1) Activated Partial Thromboplast Time 24 SEC (23-33) Sodium Level 137 MMOL/L (136-145) 138 MMOL/L (136-145) Potassium Level 4.3 MMOL/L (3.5-5.1) 3.7 MMOL/L (3.5-5.1) Chloride Level 101 MMOL/L (98-107) 105 MMOL/L (98-107) Carbon Dioxide Level 22 MMOL/L (21-32) 22 MMOL/L (21-32) Anion Gap 14 mmol/L (5-15) 11 mmol/L (5-15) Blood Urea Nitrogen 31 mg/dL (7-18) 25 mg/dL (7-18) Creatinine 1.6 MG/DL (0.55-1.30) 1.1 MG/DL (0.55-1.30) Estimat Glomerular Filtration Rate 41.4 mL/min (>60) > 60 mL/min (>60) Glucose Level 210 MG/DL (74-106) 128 MG/DL (74-106) Lactic Acid Level 3.40 mmol/L (0.4-2.0) 3.30 mmol/L (0.66-2.22) 2.90 mmol/L (0.4-2.0) Uric Acid 4.9 MG/DL (2.6-7.2) Calcium Level 9.2 MG/DL (8.5-10.1) 8.1 MG/DL (8.5-10.1) Phosphorus Level 3.1 MG/DL (2.5-4.9) Magnesium Level 2.2 MG/DL (1.8-2.4) Total Bilirubin 2.5 MG/DL (0.2-1.0) 2.0 MG/DL (0.2-1.0) Direct Bilirubin 1.1 MG/DL (0.0-0.3) 0.7 MG/DL (0.0-0.3) Aspartate Amino Transf (AST/SGOT) 53 U/L (15-37) 40 U/L (15-37) Alanine Aminotransferase (ALT/SGPT) 67 U/L (12-78) 63 U/L (12-78) Alkaline Phosphatase 154 U/L (46-116) 128 U/L (46-116) Total Creatine Kinase 72 U/L (26-308) Creatine Kinase MB < 0.5 NG/ML (0.0-3.6) Creatine Kinase MB Relative Index 0.6 Troponin I 0.000 ng/mL (0.000-0.056) Pro-B-Type Natriuretic Peptide 337 pg/mL (0-125) Total Protein 7.3 G/DL (6.4-8.2) 6.3 G/DL (6.4-8.2) Albumin 3.5 G/DL (3.4-5.0) 3.0 G/DL (3.4-5.0) Globulin 3.8 g/dL 3.3 g/dL Albumin/Globulin Ratio 0.9 (1.0-2.7) 0.9 (1.0-2.7) Urine Color Brown Urine Appearance Slightly cloudy Urine pH 5 (4.5-8.0) Urine Specific [place] 1.015 (1.005-1.035) Urine Protein 2+ (NEGATIVE) Urine Glucose (UA) 4+ (NEGATIVE) Urine Ketones 1+ (NEGATIVE) Urine Blood 1+ (NEGATIVE) Urine Nitrite Negative (NEGATIVE) Urine Bilirubin 2+ (NEGATIVE) Urine Ictotest Negative (NEGATIVE) Urine Urobilinogen 8 MG/DL (0.0-1.0) Urine Leukocyte Esterase 1+ (NEGATIVE) Urine RBC 2-4 /HPF (0 - 0) Urine WBC 2-4 /HPF (0 - 0) Urine Squamous Epithelial Cells Occasional /LPF Urine Bacteria Few /HPF (NONE) Urine Mucus Many /LPF (NONE/OCC) Test 11/19/19 03:23 White Blood Count 12.4 K/UL (4.8-10.8) Red Blood Count 3.38 M/UL (4.70-6.10) Hemoglobin 11.3 G/DL (14.2-18.0) Hematocrit 30.8 % (42.0-52.0) Mean Corpuscular Volume 91 FL (80-99) Mean Corpuscular Hemoglobin 33.5 PG (27.0-31.0) Mean Corpuscular Hemoglobin Concent 36.8 G/DL (32.0-36.0) Red Cell Distribution Width 15.8 % (11.6-14.8) Platelet Count 182 K/UL (150-450) Mean Platelet Volume 6.3 FL (6.5-10.1) Neutrophils (%) (Auto) 74.6 % (45.0-75.0) Lymphocytes (%) (Auto) 6.0 % (20.0-45.0) Monocytes (%) (Auto) 13.2 % (1.0-10.0) Eosinophils (%) (Auto) 5.8 % (0.0-3.0) Basophils (%) (Auto) 0.4 % (0.0-2.0) Sodium Level 140 MMOL/L (136-145) Potassium Level 3.6 MMOL/L (3.5-5.1) Chloride Level 108 MMOL/L (98-107) Carbon Dioxide Level 23 MMOL/L (21-32) Anion Gap 9 mmol/L (5-15) Blood Urea Nitrogen 24 mg/dL (7-18) Creatinine 1.0 MG/DL (0.55-1.30) Estimat Glomerular Filtration Rate > 60 mL/min (>60) Glucose Level 134 MG/DL (74-106) Calcium Level 7.6 MG/DL (8.5-10.1) Height (Feet): 5 Height (Inches): 8.00 Weight (Pounds): 183 Objective Physical Exam: Vitals: reviewed General: NAD HEENT: nc, at Neck: supple Chest: clear breath sounds bilaterally Cardiovascular: RRR, no s3, s4 Abdomen: soft, nontender, nd Extremities: no cce, normal range of motion Neuro: alert and oriented Andrew Rey MD November 19, 2019 08:28
[2019-11-19] MEDS: Enoxaparin 40mg Inj SUBQ SCH (08:29)
--- NOTE | 2019-11-19 09:57 | NUR ---
RD ASSESSMENT & RECOMMENDATIONS SEE CARE ACTIVITY FOR COMPLETE ASSESSMENT DAILY ESTIMATED NEEDS: Needs based on cancer, chemo 73.3kg abw 25-30 kcals/kg 4462-7729 total kcals 1-2 g protein/kg 73-110 g total protein 25-30 mL/kg 3675-5940 total fluid mLs NUTRITION DIAGNOSIS: Increased kcal and pro needs r/t cancer and chemo as evidenced by pt w/ pancreatic cancer, recent chemo treatment x1 week ago. CURRENT DIET: CCHO MED ms chopped PO DIET RECOMMENDATIONS: Maintain CCHO MED diet/ texture as tolerated ADDITIONAL RECOMMENDATIONS: 1) Obtain a standing scale weight 2) SALESPERSON HOUSEHOLD APPLIANCES meir, pt on chopped diet, unknown h/o dysphagia 3) Add snacks in b/w meal sas tolerated 4) SSI w/ bed side BG checks
--- NOTE | 2019-11-19 10:13 | Infectious Diseases Prog Note ---
Assessment/Plan Assessment/Plan antibiotics ; zosyn A 1. r/o COVID-19 pneumonia 2. Diabetes. 3. Pancreatic cancer. P 1. Continue Zosyn. 2. We will follow up cultures. 3. We will follow up on COVID-19 testing. 4. Continue isolation.1. Subjective ROS Limited/Unobtainable: Yes Allergies: Coded Allergies: ASPIRIN (Verified Allergy, Unknown, 11/17/19) Objective Vital Signs Last 24 Hour Vital Signs Date Time Temp Pulse Resp B/P (MAP) Pulse Ox O2 Delivery O2 Flow Rate FiO2 11/19/19 08:27 88 112/55 11/19/19 08:02 Room Air 11/19/19 08:00 94 11/19/19 08:00 98.0 94 18 112/55 (74) 95 11/19/19 04:00 72 11/19/19 04:00 98.2 82 16 104/56 (72) 96 11/19/19 00:00 98.9 76 17 115/54 (74) 94 11/19/19 00:00 68 11/18/19 21:00 Room Air 11/18/19 20:00 99.3 79 16 112/51 (71) 94 11/18/19 20:00 86 11/18/19 16:00 87 11/18/19 15:57 98.8 79 18 138/58 (84) 96 11/18/19 12:00 71 11/18/19 12:00 96.8 71 18 122/68 (86) 97 Height (Feet): 5 Height (Inches): 8.00 Weight (Pounds): 183 Microbiology Date/Time Source Procedure Growth Status 11/17/19 16:43 Blood Blood Culture - Preliminary NO GROWTH AFTER 24 HOURS Resulted 11/17/19 16:28 Blood Blood Culture - Preliminary NO GROWTH AFTER 24 HOURS Resulted Laboratory Tests Test 11/19/19 03:23 White Blood Count 12.4 K/UL (4.8-10.8) H Red Blood Count 3.38 M/UL (4.70-6.10) L Hemoglobin 11.3 G/DL (14.2-18.0) L Hematocrit 30.8 % (42.0-52.0) L Mean Corpuscular Volume 91 FL (80-99) Mean Corpuscular Hemoglobin 33.5 PG (27.0-31.0) H Mean Corpuscular Hemoglobin Concent 36.8 G/DL (32.0-36.0) H Red Cell Distribution Width 15.8 % (11.6-14.8) H Platelet Count 182 K/UL (150-450) Mean Platelet Volume 6.3 FL (6.5-10.1) L Neutrophils (%) (Auto) 74.6 % (45.0-75.0) Lymphocytes (%) (Auto) 6.0 % (20.0-45.0) L Monocytes (%) (Auto) 13.2 % (1.0-10.0) H Eosinophils (%) (Auto) 5.8 % (0.0-3.0) H Basophils (%) (Auto) 0.4 % (0.0-2.0) Sodium Level 140 MMOL/L (136-145) Potassium Level 3.6 MMOL/L (3.5-5.1) Chloride Level 108 MMOL/L (98-107) H Carbon Dioxide Level 23 MMOL/L (21-32) Anion Gap 9 mmol/L (5-15) Blood Urea Nitrogen 24 mg/dL (7-18) H Creatinine 1.0 MG/DL (0.55-1.30) Estimat Glomerular Filtration Rate > 60 mL/min (>60) Glucose Level 134 MG/DL (74-106) H Calcium Level 7.6 MG/DL (8.5-10.1) L Current Medications Medications (Trade) Dose Ordered Sig/Jack Route PRN Reason Start Time Stop Time Status Last Admin Dose Admin Acetaminophen (Tylenol) 650 mg Q4H PRN ORAL FEVER >100.5/Mild Pain 11/17/19 21:15 12/17/19 21:14 Amlodipine Besylate (Norvasc) 5 mg DAILY ORAL 11/18/19 09:00 12/18/19 08:59 11/19/19 08:27 Dextrose (Dextrose 50%) 25 ml Q30M PRN IV Hypoglycemia 11/17/19 21:15 02/15/20 21:14 Dextrose (Dextrose 50%) 50 ml Q30M PRN IV Hypoglycemia 11/17/19 21:15 02/15/20 21:14 Diphenhydramine HCl (Benadryl) 25 mg Q8HR PRN ORAL Itching 11/17/19 22:00 12/17/19 21:59 Enoxaparin Sodium (Lovenox) 40 mg DAILY SUBQ 11/18/19 09:00 02/16/20 08:59 11/19/19 08:29 Insulin Aspart (NovoLOG) BEFORE MEALS AND HS SUBQ 11/17/19 21:15 02/15/20 21:14 11/18/19 20:45 Lorazepam (Ativan) 1 mg Q6H PRN ORAL For Anxiety 11/17/19 22:00 11/24/19 21:59 Ondansetron HCl (Zofran) 4 mg Q6H PRN IVP Nausea & Vomiting 11/17/19 21:15 12/17/19 21:14 Pantoprazole (Protonix) 40 mg DAILY ORAL 11/18/19 09:00 12/18/19 08:59 11/19/19 08:27 Piperacillin Sod/ Tazobactam Sod 3.375 gm/Sodium Chloride 110 ml @ 27.5 mls/hr EVERY 8 HOURS IVPB 11/18/19 06:00 11/23/19 05:59 11/19/19 05:09 Zolpidem Tartrate (Ambien) 5 mg HSPRN PRN ORAL Insomnia 11/17/19 22:00 11/24/19 21:59 Nayana Brown MD November 19, 2019 10:12
--- NOTE | 2019-11-19 10:35 | NUR ---
CASE MANAGEMENT:REVIEW 11/19/19 SI: SEPSIS. SUSPECTED COVID 19 DM. PANCREATIC CANCER 98.0 94 18 112/55 95% RA WBC+12.4 H/H-11.3/30.8 CA-7.6 IS: IV ZOSYN Q8HRS LOVENOX SQ QD NORVASC PO QD PROTONIX PO QD : TELEMETRY STATUS DCP: PATIENT IS FROM HOME PLAN: MAINTAIN ISOLATION UNTIL COVID 19 HAS RESULTED PT EVAL
--- NOTE | 2019-11-19 11:59 | Pulmonology Progress Note ---
Subjective ROS Limited/Unobtainable: Yes Interval Events: None new reported Constitutional: Reports: no symptoms HEENT: Repors: no symptoms Respiratory: Reports: no symptoms Cardiovascular: Reports: no symptoms Gastrointestinal/Abdominal: Reports: no symptoms Allergies: Coded Allergies: ASPIRIN (Verified Allergy, Unknown, 11/17/19) All Systems: reviewed and negative except above Objective Last 24 Hour Vital Signs Date Time Temp Pulse Resp B/P (MAP) Pulse Ox O2 Delivery O2 Flow Rate FiO2 11/19/19 08:27 88 112/55 11/19/19 08:02 Room Air 11/19/19 08:00 94 11/19/19 08:00 98.0 94 18 112/55 (74) 95 11/19/19 04:00 72 11/19/19 04:00 98.2 82 16 104/56 (72) 96 11/19/19 00:00 98.9 76 17 115/54 (74) 94 11/19/19 00:00 68 11/18/19 21:00 Room Air 11/18/19 20:00 99.3 79 16 112/51 (71) 94 11/18/19 20:00 86 11/18/19 16:00 87 11/18/19 15:57 98.8 79 18 138/58 (84) 96 11/18/19 12:00 71 11/18/19 12:00 96.8 71 18 122/68 (86) 97 Intake and Output 11/18/19 11/19/19 19:00 07:00 Intake Total 720 ml 240 ml Output Total 450 ml Balance 270 ml 240 ml Intake Oral 720 ml 240 ml Output Urine Total 450 ml # Voids 2 1 General Appearance: no acute distress HEENT: normocephalic Respiratory: chest wall non-tender, lungs clear Cardiovascular: normal peripheral pulses Abdomen: normal bowel sounds Microbiology Date/Time Source Procedure Growth Status 11/17/19 16:43 Blood Blood Culture - Preliminary NO GROWTH AFTER 24 HOURS Resulted 11/17/19 16:28 Blood Blood Culture - Preliminary NO GROWTH AFTER 24 HOURS Resulted Laboratory Tests 11/19/19 03:23: White Blood Count 12.4H, Red Blood Count 3.38L, Hemoglobin 11.3L, Hematocrit 30.8L, Mean Corpuscular Volume 91, Mean Corpuscular Hemoglobin 33.5H, Mean Corpuscular Hemoglobin Concent 36.8H, Red Cell Distribution Width 15.8H, Platelet Count 182, Mean Platelet Volume 6.3L, Neutrophils (%) (Auto) 74.6, Lymphocytes (%) (Auto) 6.0L, Monocytes (%) (Auto) 13.2H, Eosinophils (%) (Auto) 5.8H, Basophils (%) (Auto) 0.4, Sodium Level 140, Potassium Level 3.6, Chloride Level 108H, Carbon Dioxide Level 23, Anion Gap 9, Blood Urea Nitrogen 24H, Creatinine 1.0, Estimat Glomerular Filtration Rate > 60, Glucose Level 134H, Calcium Level 7.6L Current Medications Medications (Trade) Dose Ordered Sig/Jack Route PRN Reason Start Time Stop Time Status Last Admin Dose Admin Acetaminophen (Tylenol) 650 mg Q4H PRN ORAL FEVER >100.5/Mild Pain 11/17/19 21:15 12/17/19 21:14 Amlodipine Besylate (Norvasc) 5 mg DAILY ORAL 11/18/19 09:00 12/18/19 08:59 11/19/19 08:27 Dextrose (Dextrose 50%) 25 ml Q30M PRN IV Hypoglycemia 11/17/19 21:15 02/15/20 21:14 Dextrose (Dextrose 50%) 50 ml Q30M PRN IV Hypoglycemia 11/17/19 21:15 02/15/20 21:14 Diphenhydramine HCl (Benadryl) 25 mg Q8HR PRN ORAL Itching 11/17/19 22:00 12/17/19 21:59 Enoxaparin Sodium (Lovenox) 40 mg DAILY SUBQ 11/18/19 09:00 02/16/20 08:59 11/19/19 08:29 Insulin Aspart (NovoLOG) BEFORE MEALS AND HS SUBQ 11/17/19 21:15 02/15/20 21:14 11/18/19 20:45 Lorazepam (Ativan) 1 mg Q6H PRN ORAL For Anxiety 11/17/19 22:00 11/24/19 21:59 Ondansetron HCl (Zofran) 4 mg Q6H PRN IVP Nausea & Vomiting 11/17/19 21:15 12/17/19 21:14 Pantoprazole (Protonix) 40 mg DAILY ORAL 11/18/19 09:00 12/18/19 08:59 11/19/19 08:27 Piperacillin Sod/ Tazobactam Sod 3.375 gm/Sodium Chloride 110 ml @ 27.5 mls/hr EVERY 8 HOURS IVPB 11/18/19 06:00 11/23/19 05:59 11/19/19 05:09 Zolpidem Tartrate (Ambien) 5 mg HSPRN PRN ORAL Insomnia 11/17/19 22:00 11/24/19 21:59 Assessment/Plan Assessment/Plan IMPRESSION: 1. Leukocytosis. 2. Pancreatic cancer. 3. Diabetes mellitus. DISCUSSION: Do not suspect pneumonia. Agree with empiric antibiotics. Hematology/Oncology consultation noted. I will follow carefully as pulmonary entry level sales consultant. I will order oxygen and pulmonary hygiene as needed. Await COVID-19 swab. Currently saturating well on RA Orlando Harrison Omar Syed MD November 19, 2019 11:59
[2019-11-19 12:00] VITALS: BP 113/60
--- NOTE | 2019-11-19 13:29 | NUR ---
P.T Note: P.T evaluation completed and tx initiated. Please refer to P.T evaluation for current functional status. Pt is alert, O x 4 , pleasant and cooperative. Pt denied c/o pain however reports c/o being generally weak. Pt. is independent with bed mobilities and SBA for transfers and gait/ambulation activities. Pt will benefit from skilled P.T service during stay to maintain and increase mobility independence. Pt is cleared for OOB activities with nursing assist. Recommend DC to home when medically stable.
[2019-11-19 16:00] VITALS: BP 120/54
--- NOTE | 2019-11-19 19:25 | NUR ---
NURSE NOTES: Report received from Kalani Freire RN. Patient is awake and alert x 3. Patient noted to be on room air. Denies chest pain and shortness of breath. Patient noted to have have 20 allie IV in left hand. Patient noted to have right forearm 20 allie with fluids running per MD orders. Endorsed to Jaden RODRIGUEZ that patient is to no longer receive fluids via IV after current fluid is finished. Noted that patient is contact/droplet precautions due to covid 19 rule out. Patient swabbed on November 18, 2019, swab results still pending. Endorsed that patient is amble to ambulate, but is weak and becomes tired easily. Educated patient to call when needing assistance to get up. Patient verbalized understanding. Bed locked, alarmed, in lowest position. Will continue to follow plan of care.
--- NOTE | 2019-11-19 19:25 | NUR ---
HAND-OFF: Report given to Jaden RODRIGUEZ. Patient is in stable condition.
[2019-11-19 20:00] VITALS: BP 109/64
--- NOTE | 2019-11-19 22:18 | NUR ---
NURSE NOTES: Patient expressed to Jaden RODRIGUEZ that he does not wish to take insulin. Patient states he does not take it at home. Patient states that he takes metformin at home and would like to continue to take it here instead of the insulin. Patient is unsure of dose. Educated patient the purpose of insulin. Patient verbalized understanding but still wishes to take metformin. Informed patient that it would be endorsed to the MD. Will endorse to morning nurse.
[2019-11-20] VITALS: BP 103/53
[2019-11-20 04:00] VITALS: BP 107/53
[2019-11-20] MEDS: NovoLOG Insulin Flexpen SUBQ SCH (05:31)
[2019-11-20] MEDS: Piperacillin/Tazobactam 3.375 GM in NS 110 ML IVPB SCH ×3 (05:40→14:17)
[2019-11-20 07:09] LABS: BASOPHILS % (AUTO) 1.6 % (0.0-2.0); EOSINOPHILS % (AUTO) 9.5 % (0.0-3.0); HEMATOCRIT 29.9 % (42.0-52.0); HEMOGLOBIN 10.8 G/DL (14.2-18.0); MEAN CORPUSCULAR VOLUME 92 FL (80-99); MONOCYTES % (AUTO) 13.4 % (1.0-10.0); NEUTROPHILS % (AUTO) 70.4 % (45.0-75.0); PLATELET COUNT 164 K/UL (150-450); RED BLOOD COUNT 3.25 M/UL (4.70-6.10); WHITE BLOOD COUNT 12.7 K/UL (4.8-10.8)
--- NOTE | 2019-11-20 07:23 | NUR ---
HAND-OFF: Report given to Scott RODRIGUEZ. Endorsed that patient does not wish to continue to take insulin. Endorsed that patient would like to speak with doctor today. Patient in stable condition.
[2019-11-20 07:33] LABS: ANION GAP 11 mmol/L (5-15); BLOOD UREA NITROGEN 26 mg/dL (7-18); CARBON DIOXIDE 21 MMOL/L (21-32); CHLORIDE 107 MMOL/L (98-107); POTASSIUM 3.2 MMOL/L (3.5-5.1); SODIUM 139 MMOL/L (136-145)
--- NOTE | 2019-11-20 07:46 | Hematology/Onc Progress Note ---
Assessment/Plan Assessment/Plan Assessment and Recs # Pancreatic cancer that is metastatic, has been on chemotherapy and getting it every 2 weeks --> rule out sepsis, likely is what she has --> imaging has been noted, cxr neg --> abx as per id, lactate trend --> ca 19.9 ordered --> on zosyn # Anemia of chronic disease due to underlying chronic medical issues, multifactorial v Gi bleed --> Anemia workup has been ordered, rule out gi bleed --> No evidence of hemolysis is noted, peripheral smear has been reviewed. --> Hgb goal >7. Transfuse prn. --> Epogen or iron at this time is not particularly indicated --> Medications have been reviewed --> low threshold for gi evaluation in case has occult + # Leucoytosis that is related to elevated wbc, sepsis --> as per id --> smear noted --> likely chemo at this time myelosuppresive of immune system --> wbc trend: 12.4-->12.7 --> blood cx negative x2 # Suspected 2019 novel coronavirus infection --> iso as per id # KAITLYNN (acute kidney injury) --> per rneal # Dehydration # Dvt ppx lovenox sq The timing of this note does not necessarily reflect the time of the patient was seen. Greatly appreciate consultation. Subjective Allergies: Coded Allergies: ASPIRIN (Verified Allergy, Unknown, 11/17/19) Subjective 11/18 tele, pending covid swab, iv abx, room air 11/19 awake and alert, blood cx neg x2, covid swab 11/18/2019, results pending Objective Objective Current Medications Medications (Trade) Dose Ordered Sig/Jack Route PRN Reason Start Time Stop Time Status Last Admin Dose Admin Acetaminophen (Tylenol) 650 mg Q4H PRN ORAL FEVER >100.5/Mild Pain 11/17/19 21:15 12/17/19 21:14 Amlodipine Besylate (Norvasc) 5 mg DAILY ORAL 11/18/19 09:00 12/18/19 08:59 11/19/19 08:27 Dextrose (Dextrose 50%) 25 ml Q30M PRN IV Hypoglycemia 11/17/19 21:15 02/15/20 21:14 Dextrose (Dextrose 50%) 50 ml Q30M PRN IV Hypoglycemia 11/17/19 21:15 02/15/20 21:14 Diphenhydramine HCl (Benadryl) 25 mg Q8HR PRN ORAL Itching 11/17/19 22:00 12/17/19 21:59 Enoxaparin Sodium (Lovenox) 40 mg DAILY SUBQ 11/18/19 09:00 02/16/20 08:59 11/19/19 08:29 Insulin Aspart (NovoLOG) BEFORE MEALS AND HS SUBQ 11/17/19 21:15 02/15/20 21:14 11/19/19 21:03 Lorazepam (Ativan) 1 mg Q6H PRN ORAL For Anxiety 11/17/19 22:00 11/24/19 21:59 Ondansetron HCl (Zofran) 4 mg Q6H PRN IVP Nausea & Vomiting 11/17/19 21:15 12/17/19 21:14 Pantoprazole (Protonix) 40 mg DAILY ORAL 11/18/19 09:00 12/18/19 08:59 11/19/19 08:27 Piperacillin Sod/ Tazobactam Sod 3.375 gm/Sodium Chloride 110 ml @ 27.5 mls/hr EVERY 8 HOURS IVPB 11/18/19 06:00 11/23/19 05:59 11/20/19 05:40 Zolpidem Tartrate (Ambien) 5 mg HSPRN PRN ORAL Insomnia 11/17/19 22:00 11/24/19 21:59 Last 24 Hour Vital Signs Date Time Temp Pulse Resp B/P (MAP) Pulse Ox O2 Delivery O2 Flow Rate FiO2 11/20/19 04:00 74 11/20/19 04:00 98.9 74 19 107/53 (71) 96 11/20/19 00:00 98.1 82 19 103/53 (70) 98 11/20/19 00:00 71 11/19/19 21:00 Room Air 11/19/19 20:00 78 11/19/19 20:00 98.1 74 20 109/64 (79) 98 11/19/19 16:00 98.0 80 18 120/54 (76) 96 11/19/19 12:00 79 11/19/19 12:00 98.9 79 18 113/60 (77) 96 11/19/19 08:27 88 112/55 11/19/19 08:02 Room Air 11/19/19 08:00 94 11/19/19 08:00 98.0 94 18 112/55 (74) 95 11/19/19 04:00 72 11/19/19 04:00 98.2 82 16 104/56 (72) 96 11/19/19 00:00 98.9 76 17 115/54 (74) 94 11/19/19 00:00 68 11/18/19 21:00 Room Air 11/18/19 20:00 99.3 79 16 112/51 (71) 94 11/18/19 20:00 86 11/18/19 16:00 87 11/18/19 15:57 98.8 79 18 138/58 (84) 96 11/18/19 12:00 71 11/18/19 12:00 96.8 71 18 122/68 (86) 97 11/18/19 09:00 Room Air 11/18/19 08:50 83 112/61 11/18/19 08:00 97.5 85 18 112/61 (78) 95 Intake and Output 11/19/19 11/20/19 19:00 07:00 Intake Total 324 ml 137.5 ml Balance 324 ml 137.5 ml Intake Oral 324 ml IV Total 137.5 ml # Voids 2 3 # Bowel Movements 1 2 Labs Test 11/17/19 16:45 11/17/19 18:05 11/17/19 18:10 11/18/19 06:46 White Blood Count 20.9 K/UL (4.8-10.8) 13.4 K/UL (4.8-10.8) Red Blood Count 3.74 M/UL (4.70-6.10) 3.65 M/UL (4.70-6.10) Hemoglobin 12.3 G/DL (14.2-18.0) 11.9 G/DL (14.2-18.0) Hematocrit 37.4 % (42.0-52.0) 34.0 % (42.0-52.0) Mean Corpuscular Volume 100 FL (80-99) 93 FL (80-99) Mean Corpuscular Hemoglobin 32.9 PG (27.0-31.0) 32.5 PG (27.0-31.0) Mean Corpuscular Hemoglobin Concent 32.9 G/DL (32.0-36.0) 34.9 G/DL (32.0-36.0) Red Cell Distribution Width 18.3 % (11.6-14.8) 16.2 % (11.6-14.8) Platelet Count 239 K/UL (150-450) 187 K/UL (150-450) Mean Platelet Volume 7.0 FL (6.5-10.1) 5.6 FL (6.5-10.1) Neutrophils (%) (Auto) % (45.0-75.0) % (45.0-75.0) Lymphocytes (%) (Auto) % (20.0-45.0) % (20.0-45.0) Monocytes (%) (Auto) % (1.0-10.0) % (1.0-10.0) Eosinophils (%) (Auto) % (0.0-3.0) % (0.0-3.0) Basophils (%) (Auto) % (0.0-2.0) % (0.0-2.0) Differential Total Cells Counted 100 100 Neutrophils % (Manual) 77 % (45-75) 86 % (45-75) Lymphocytes % (Manual) 2 % (20-45) 6 % (20-45) Monocytes % (Manual) 10 % (1-10) 6 % (1-10) Eosinophils % (Manual) 1 % (0-3) 2 % (0-3) Basophils % (Manual) 0 % (0-2) 0 % (0-2) Band Neutrophils 10 % (0-8) 0 % (0-8) Platelet Estimate Adequate Adequate Platelet Morphology Normal Normal Polychromasia 1+ Anisocytosis 2+ 1+ Macrocytosis 1+ Prothrombin Time 17.4 SEC (9.30-11.50) Prothromb Time International Ratio 1.6 (0.9-1.1) Activated Partial Thromboplast Time 24 SEC (23-33) Sodium Level 137 MMOL/L (136-145) 138 MMOL/L (136-145) Potassium Level 4.3 MMOL/L (3.5-5.1) 3.7 MMOL/L (3.5-5.1) Chloride Level 101 MMOL/L (98-107) 105 MMOL/L (98-107) Carbon Dioxide Level 22 MMOL/L (21-32) 22 MMOL/L (21-32) Anion Gap 14 mmol/L (5-15) 11 mmol/L (5-15) Blood Urea Nitrogen 31 mg/dL (7-18) 25 mg/dL (7-18) Creatinine 1.6 MG/DL (0.55-1.30) 1.1 MG/DL (0.55-1.30) Estimat Glomerular Filtration Rate 41.4 mL/min (>60) > 60 mL/min (>60) Glucose Level 210 MG/DL (74-106) 128 MG/DL (74-106) Lactic Acid Level 3.40 mmol/L (0.4-2.0) 3.30 mmol/L (0.66-2.22) 2.90 mmol/L (0.4-2.0) Uric Acid 4.9 MG/DL (2.6-7.2) Calcium Level 9.2 MG/DL (8.5-10.1) 8.1 MG/DL (8.5-10.1) Phosphorus Level 3.1 MG/DL (2.5-4.9) Magnesium Level 2.2 MG/DL (1.8-2.4) Total Bilirubin 2.5 MG/DL (0.2-1.0) 2.0 MG/DL (0.2-1.0) Direct Bilirubin 1.1 MG/DL (0.0-0.3) 0.7 MG/DL (0.0-0.3) Aspartate Amino Transf (AST/SGOT) 53 U/L (15-37) 40 U/L (15-37) Alanine Aminotransferase (ALT/SGPT) 67 U/L (12-78) 63 U/L (12-78) Alkaline Phosphatase 154 U/L (46-116) 128 U/L (46-116) Total Creatine Kinase 72 U/L (26-308) Creatine Kinase MB < 0.5 NG/ML (0.0-3.6) Creatine Kinase MB Relative Index 0.6 Troponin I 0.000 ng/mL (0.000-0.056) Pro-B-Type Natriuretic Peptide 337 pg/mL (0-125) Total Protein 7.3 G/DL (6.4-8.2) 6.3 G/DL (6.4-8.2) Albumin 3.5 G/DL (3.4-5.0) 3.0 G/DL (3.4-5.0) Globulin 3.8 g/dL 3.3 g/dL Albumin/Globulin Ratio 0.9 (1.0-2.7) 0.9 (1.0-2.7) Urine Color Brown Urine Appearance Slightly cloudy Urine pH 5 (4.5-8.0) Urine Specific [place] 1.015 (1.005-1.035) Urine Protein 2+ (NEGATIVE) Urine Glucose (UA) 4+ (NEGATIVE) Urine Ketones 1+ (NEGATIVE) Urine Blood 1+ (NEGATIVE) Urine Nitrite Negative (NEGATIVE) Urine Bilirubin 2+ (NEGATIVE) Urine Ictotest Negative (NEGATIVE) Urine Urobilinogen 8 MG/DL (0.0-1.0) Urine Leukocyte Esterase 1+ (NEGATIVE) Urine RBC 2-4 /HPF (0 - 0) Urine WBC 2-4 /HPF (0 - 0) Urine Squamous Epithelial Cells Occasional /LPF Urine Bacteria Few /HPF (NONE) Urine Mucus Many /LPF (NONE/OCC) CA 19-9 Antigen 34 U/mL (0-35) Test 11/19/19 03:23 11/20/19 06:50 White Blood Count 12.4 K/UL (4.8-10.8) 12.7 K/UL (4.8-10.8) Red Blood Count 3.38 M/UL (4.70-6.10) 3.25 M/UL (4.70-6.10) Hemoglobin 11.3 G/DL (14.2-18.0) 10.8 G/DL (14.2-18.0) Hematocrit 30.8 % (42.0-52.0) 29.9 % (42.0-52.0) Mean Corpuscular Volume 91 FL (80-99) 92 FL (80-99) Mean Corpuscular Hemoglobin 33.5 PG (27.0-31.0) 33.2 PG (27.0-31.0) Mean Corpuscular Hemoglobin Concent 36.8 G/DL (32.0-36.0) 36.1 G/DL (32.0-36.0) Red Cell Distribution Width 15.8 % (11.6-14.8) 16.0 % (11.6-14.8) Platelet Count 182 K/UL (150-450) 164 K/UL (150-450) Mean Platelet Volume 6.3 FL (6.5-10.1) 6.6 FL (6.5-10.1) Neutrophils (%) (Auto) 74.6 % (45.0-75.0) 70.4 % (45.0-75.0) Lymphocytes (%) (Auto) 6.0 % (20.0-45.0) 5.0 % (20.0-45.0) Monocytes (%) (Auto) 13.2 % (1.0-10.0) 13.4 % (1.0-10.0) Eosinophils (%) (Auto) 5.8 % (0.0-3.0) 9.5 % (0.0-3.0) Basophils (%) (Auto) 0.4 % (0.0-2.0) 1.6 % (0.0-2.0) Sodium Level 140 MMOL/L (136-145) Potassium Level 3.6 MMOL/L (3.5-5.1) Chloride Level 108 MMOL/L (98-107) Carbon Dioxide Level 23 MMOL/L (21-32) Anion Gap 9 mmol/L (5-15) Blood Urea Nitrogen 24 mg/dL (7-18) Creatinine 1.0 MG/DL (0.55-1.30) Estimat Glomerular Filtration Rate > 60 mL/min (>60) Glucose Level 134 MG/DL (74-106) Calcium Level 7.6 MG/DL (8.5-10.1) Height (Feet): 5 Height (Inches): 8.00 Weight (Pounds): 183 Objective Physical Exam: Vitals: reviewed General: NAD HEENT: nc, at Neck: supple Chest: clear breath sounds bilaterally Cardiovascular: RRR, no s3, s4 Abdomen: soft, nontender, nd Extremities: no cce, normal range of motion Neuro: alert and oriented Andrew Rey MD November 20, 2019 07:46
[2019-11-20 07:52] VITALS: BP 110/52
--- NOTE | 2019-11-20 08:04 | NUR ---
potassium 3.2meq>>> MADE AWARE AND WAITING FOR CALL BACK Addendum: 11/20/19 at 0846 by EVA JAQUEZ RN RN ORDERED 40 meq PO times one d/t potassium 3.2
[2019-11-20] MEDS: Enoxaparin 40mg Inj SUBQ SCH (08:11)
--- NOTE | 2019-11-20 08:22 | NUR ---
CASE MANAGEMENT:REVIEW 11/20/19 SI: SEPSIS. SUSPECTED COVID 19 DM. PANCREATIC CANCER 98.8 99 18 110/52 97% ON RA WBC+12.7 H/H-10.8/29.9 K-3.2 IS: IV ZOSYN Q8HRS LOVENOX SQ QD NORVASC PO QD PROTONIX PO QD : TELEMETRY STATUS DCP: PATIENT IS FROM HOME PLAN: MAINTAIN ISOLATION UNTIL COVID 19 HAS RESULTED PT EVAL COMPLETED ~ AMBULATED 75FT X2
--- NOTE | 2019-11-20 09:49 | Pulmonology Progress Note ---
Subjective ROS Limited/Unobtainable: Yes Interval Events: None new reported; hypokelemic today Constitutional: Reports: no symptoms HEENT: Repors: no symptoms Respiratory: Reports: no symptoms Cardiovascular: Reports: no symptoms Gastrointestinal/Abdominal: Reports: no symptoms Allergies: Coded Allergies: ASPIRIN (Verified Allergy, Unknown, 11/17/19) All Systems: reviewed and negative except above Objective Last 24 Hour Vital Signs Date Time Temp Pulse Resp B/P (MAP) Pulse Ox O2 Delivery O2 Flow Rate FiO2 11/20/19 09:00 Room Air 11/20/19 08:09 99 117/65 11/20/19 07:52 98.8 99 18 110/52 (71) 97 11/20/19 04:00 74 11/20/19 04:00 98.9 74 19 107/53 (71) 96 11/20/19 00:00 98.1 82 19 103/53 (70) 98 11/20/19 00:00 71 11/19/19 21:00 Room Air 11/19/19 20:00 78 11/19/19 20:00 98.1 74 20 109/64 (79) 98 11/19/19 16:00 98.0 80 18 120/54 (76) 96 11/19/19 12:00 79 11/19/19 12:00 98.9 79 18 113/60 (77) 96 Intake and Output 11/19/19 11/20/19 19:00 07:00 Intake Total 324 ml 137.5 ml Balance 324 ml 137.5 ml Intake Oral 324 ml IV Total 137.5 ml # Voids 2 3 # Bowel Movements 1 2 General Appearance: no acute distress HEENT: normocephalic Respiratory: chest wall non-tender, lungs clear Cardiovascular: normal peripheral pulses Abdomen: normal bowel sounds Microbiology Date/Time Source Procedure Growth Status 11/17/19 16:43 Blood Blood Culture - Preliminary NO GROWTH AFTER 48 HOURS Resulted 11/17/19 16:28 Blood Blood Culture - Preliminary NO GROWTH AFTER 48 HOURS Resulted Laboratory Tests 11/20/19 06:50: White Blood Count 12.7H, Red Blood Count 3.25L, Hemoglobin 10.8L, Hematocrit 29.9L, Mean Corpuscular Volume 92, Mean Corpuscular Hemoglobin 33.2H, Mean Corpuscular Hemoglobin Concent 36.1H, Red Cell Distribution Width 16.0H, Platelet Count 164, Mean Platelet Volume 6.6, Neutrophils (%) (Auto) 70.4, Lymphocytes (%) (Auto) 5.0L, Monocytes (%) (Auto) 13.4H, Eosinophils (%) (Auto) 9.5H, Basophils (%) (Auto) 1.6, Sodium Level 139, Potassium Level 3.2L, Chloride Level 107, Carbon Dioxide Level 21, Anion Gap 11, Blood Urea Nitrogen 26H, Creatinine 1.0, Estimat Glomerular Filtration Rate > 60, Glucose Level 128H , Calcium Level 8.0L Current Medications Medications (Trade) Dose Ordered Sig/Jack Route PRN Reason Start Time Stop Time Status Last Admin Dose Admin Acetaminophen (Tylenol) 650 mg Q4H PRN ORAL FEVER >100.5/Mild Pain 11/17/19 21:15 12/17/19 21:14 Amlodipine Besylate (Norvasc) 5 mg DAILY ORAL 11/18/19 09:00 12/18/19 08:59 11/20/19 08:09 Dextrose (Dextrose 50%) 25 ml Q30M PRN IV Hypoglycemia 11/17/19 21:15 02/15/20 21:14 Dextrose (Dextrose 50%) 50 ml Q30M PRN IV Hypoglycemia 11/17/19 21:15 02/15/20 21:14 Diphenhydramine HCl (Benadryl) 25 mg Q8HR PRN ORAL Itching 11/17/19 22:00 12/17/19 21:59 Enoxaparin Sodium (Lovenox) 40 mg DAILY SUBQ 11/18/19 09:00 02/16/20 08:59 11/20/19 08:11 Insulin Aspart (NovoLOG) BEFORE MEALS AND HS SUBQ 11/17/19 21:15 02/15/20 21:14 11/19/19 21:03 Lorazepam (Ativan) 1 mg Q6H PRN ORAL For Anxiety 11/17/19 22:00 11/24/19 21:59 Ondansetron HCl (Zofran) 4 mg Q6H PRN IVP Nausea & Vomiting 11/17/19 21:15 12/17/19 21:14 Pantoprazole (Protonix) 40 mg DAILY ORAL 11/18/19 09:00 12/18/19 08:59 11/20/19 08:08 Piperacillin Sod/ Tazobactam Sod 3.375 gm/Sodium Chloride 110 ml @ 27.5 mls/hr EVERY 8 HOURS IVPB 11/18/19 06:00 11/23/19 05:59 11/20/19 05:40 Potassium Chloride (K-Dur) 40 meq ONCE ORAL 11/20/19 08:45 11/20/19 10:00 11/20/19 09:44 Zolpidem Tartrate (Ambien) 5 mg HSPRN PRN ORAL Insomnia 11/17/19 22:00 11/24/19 21:59 Assessment/Plan Assessment/Plan IMPRESSION: 1. Leukocytosis. 2. Pancreatic cancer. 3. Diabetes mellitus. DISCUSSION: Do not suspect pneumonia. Agree with empiric antibiotics. Hematology/Oncology consultation noted. I will follow carefully as pulmonary management consultant. I will order oxygen and pulmonary hygiene as needed. Await COVID-19 swab. Hypokalemia corrected Currently saturating well on RA Oz Maier M.D. Oz Maier MD November 20, 2019 09:49
[2019-11-20] MEDS ORDERED: GlipiZIDE 5mg tab ORAL SCH (10:00)
[2019-11-20] MEDS ORDERED: metFORMIN 500mg tab ORAL SCH (10:00)
[2019-11-20 12:00] VITALS: BP 122/60
--- NOTE | 2019-11-20 12:13 | General Progress Note ---
Assessment/Plan Problem List: (1) Pancreatic cancer ICD Codes: C25.9 - Malignant neoplasm of pancreas, unspecified SNOMED: 084785288 (2) Weak ICD Codes: R53.1 - Weakness SNOMED: 79498446 (3) AMS (altered mental status) ICD Codes: R41.82 - Altered mental status, unspecified SNOMED: 676880567 (4) Fever ICD Codes: R50.9 - Fever, unspecified SNOMED: 718724934 (5) UTI (urinary tract infection) ICD Codes: N39.0 - Urinary tract infection, site not specified SNOMED: 71476172 (6) Anemia ICD Codes: D64.9 - Anemia, unspecified SNOMED: 773376554 (7) Malnutrition ICD Codes: E46 - Unspecified protein-calorie malnutrition SNOMED: 61470281 (8) Diabetes ICD Codes: E11.9 - Type 2 diabetes mellitus without complications SNOMED: 62284561 (9) Suspected 2019 novel coronavirus infection ICD Codes: Z20.828 - Contact with and (suspected) exposure to other viral communicable diseases SNOMED: 415284299 (10) Sepsis ICD Codes: A41.9 - Sepsis, unspecified organism SNOMED: 68337751 Status: unchanged Assessment/Plan: pt diet abx cbc bmp am Subjective Constitutional: Reports: weakness Allergies: Coded Allergies: ASPIRIN (Verified Allergy, Unknown, 11/17/19) All Systems: reviewed and negative except above Subjective sleepy calm Objective Last 24 Hour Vital Signs Date Time Temp Pulse Resp B/P (MAP) Pulse Ox O2 Delivery O2 Flow Rate FiO2 11/20/19 09:00 Room Air 11/20/19 08:09 99 117/65 11/20/19 08:00 102 11/20/19 07:52 98.8 99 18 110/52 (71) 97 11/20/19 04:00 74 11/20/19 04:00 98.9 74 19 107/53 (71) 96 11/20/19 00:00 98.1 82 19 103/53 (70) 98 11/20/19 00:00 71 11/19/19 21:00 Room Air 11/19/19 20:00 78 11/19/19 20:00 98.1 74 20 109/64 (79) 98 11/19/19 16:00 98.0 80 18 120/54 (76) 96 Intake and Output 11/19/19 11/20/19 19:00 07:00 Intake Total 324 ml 137.5 ml Balance 324 ml 137.5 ml Intake Oral 324 ml IV Total 137.5 ml # Voids 2 3 # Bowel Movements 1 2 Laboratory Tests 11/20/19 06:50: White Blood Count 12.7H, Red Blood Count 3.25L, Hemoglobin 10.8L, Hematocrit 29.9L, Mean Corpuscular Volume 92, Mean Corpuscular Hemoglobin 33.2H, Mean Corpuscular Hemoglobin Concent 36.1H, Red Cell Distribution Width 16.0H, Platelet Count 164, Mean Platelet Volume 6.6, Neutrophils (%) (Auto) 70.4, Lymphocytes (%) (Auto) 5.0L, Monocytes (%) (Auto) 13.4H, Eosinophils (%) (Auto) 9.5H, Basophils (%) (Auto) 1.6, Sodium Level 139, Potassium Level 3.2L, Chloride Level 107, Carbon Dioxide Level 21, Anion Gap 11, Blood Urea Nitrogen 26H, Creatinine 1.0, Estimat Glomerular Filtration Rate > 60, Glucose Level 128H , Calcium Level 8.0L Height (Feet): 5 Height (Inches): 8.00 Weight (Pounds): 183 General Appearance: lethargic EENT: normal ENT inspection Neck: normal alignment Cardiovascular: normal rate, regular rhythm Respiratory/Chest: no respiratory distress, no accessory muscle use Extremities: normal inspection Skin: normal pigmentation Toni Keane DO November 20, 2019 12:13
--- NOTE | 2019-11-20 12:34 | Infectious Diseases Prog Note ---
Assessment/Plan Assessment/Plan A 1. Sepsis with fever & leukocytosis improving r/o COVID-19 pneumonia 2. Diabetes. 3. Pancreatic cancer. P 1. Continue Zosyn. 2. We will follow up cultures. 3. We will follow up on COVID-19 testing. 4. Continue isolation.1. Subjective ROS Limited/Unobtainable: Yes Constitutional: Reports: no symptoms Respiratory: Reports: no symptoms Gastrointestinal/Abdominal: Reports: no symptoms Allergies: Coded Allergies: ASPIRIN (Verified Allergy, Unknown, 11/17/19) Objective Vital Signs Last 24 Hour Vital Signs Date Time Temp Pulse Resp B/P (MAP) Pulse Ox O2 Delivery O2 Flow Rate FiO2 11/20/19 09:00 Room Air 11/20/19 08:09 99 117/65 11/20/19 08:00 102 11/20/19 07:52 98.8 99 18 110/52 (71) 97 11/20/19 04:00 74 11/20/19 04:00 98.9 74 19 107/53 (71) 96 11/20/19 00:00 98.1 82 19 103/53 (70) 98 11/20/19 00:00 71 11/19/19 21:00 Room Air 11/19/19 20:00 78 11/19/19 20:00 98.1 74 20 109/64 (79) 98 11/19/19 16:00 98.0 80 18 120/54 (76) 96 Height (Feet): 5 Height (Inches): 8.00 Weight (Pounds): 183 General Appearance: no acute distress HEENT: mucous membranes moist Respiratory/Chest: no respiratory distress Cardiovascular: normal rate Abdomen: soft, non tender Extremities: no edema Neurologic/Psychiatric: alert, responsive Microbiology Date/Time Source Procedure Growth Status 11/17/19 16:43 Blood Blood Culture - Preliminary NO GROWTH AFTER 48 HOURS Resulted 11/17/19 16:28 Blood Blood Culture - Preliminary NO GROWTH AFTER 48 HOURS Resulted Laboratory Tests Test 11/20/19 06:50 White Blood Count 12.7 K/UL (4.8-10.8) H Red Blood Count 3.25 M/UL (4.70-6.10) L Hemoglobin 10.8 G/DL (14.2-18.0) L Hematocrit 29.9 % (42.0-52.0) L Mean Corpuscular Volume 92 FL (80-99) Mean Corpuscular Hemoglobin 33.2 PG (27.0-31.0) H Mean Corpuscular Hemoglobin Concent 36.1 G/DL (32.0-36.0) H Red Cell Distribution Width 16.0 % (11.6-14.8) H Platelet Count 164 K/UL (150-450) Mean Platelet Volume 6.6 FL (6.5-10.1) Neutrophils (%) (Auto) 70.4 % (45.0-75.0) Lymphocytes (%) (Auto) 5.0 % (20.0-45.0) L Monocytes (%) (Auto) 13.4 % (1.0-10.0) H Eosinophils (%) (Auto) 9.5 % (0.0-3.0) H Basophils (%) (Auto) 1.6 % (0.0-2.0) Sodium Level 139 MMOL/L (136-145) Potassium Level 3.2 MMOL/L (3.5-5.1) L Chloride Level 107 MMOL/L (98-107) Carbon Dioxide Level 21 MMOL/L (21-32) Anion Gap 11 mmol/L (5-15) Blood Urea Nitrogen 26 mg/dL (7-18) H Creatinine 1.0 MG/DL (0.55-1.30) Estimat Glomerular Filtration Rate > 60 mL/min (>60) Glucose Level 128 MG/DL (74-106) H Calcium Level 8.0 MG/DL (8.5-10.1) L Current Medications Medications (Trade) Dose Ordered Sig/Jack Route PRN Reason Start Time Stop Time Status Last Admin Dose Admin Acetaminophen (Tylenol) 650 mg Q4H PRN ORAL FEVER >100.5/Mild Pain 11/17/19 21:15 12/17/19 21:14 Amlodipine Besylate (Norvasc) 5 mg DAILY ORAL 11/18/19 09:00 12/18/19 08:59 11/20/19 08:09 Dextrose (Dextrose 50%) 25 ml Q30M PRN IV Hypoglycemia 11/17/19 21:15 02/15/20 21:14 Dextrose (Dextrose 50%) 50 ml Q30M PRN IV Hypoglycemia 11/17/19 21:15 02/15/20 21:14 Diphenhydramine HCl (Benadryl) 25 mg Q8HR PRN ORAL Itching 11/17/19 22:00 12/17/19 21:59 Enoxaparin Sodium (Lovenox) 40 mg DAILY SUBQ 11/18/19 09:00 02/16/20 08:59 11/20/19 08:11 Glipizide (Glucotrol) 5 mg BID ORAL 11/20/19 10:00 12/20/19 09:59 11/20/19 10:23 Lorazepam (Ativan) 1 mg Q6H PRN ORAL For Anxiety 11/17/19 22:00 11/24/19 21:59 Metformin HCl (Glucophage) 500 mg BID ORAL 11/20/19 10:00 12/20/19 09:59 11/20/19 10:23 Ondansetron HCl (Zofran) 4 mg Q6H PRN IVP Nausea & Vomiting 11/17/19 21:15 12/17/19 21:14 Pantoprazole (Protonix) 40 mg DAILY ORAL 11/18/19 09:00 12/18/19 08:59 11/20/19 08:08 Piperacillin Sod/ Tazobactam Sod 3.375 gm/Sodium Chloride 110 ml @ 27.5 mls/hr EVERY 8 HOURS IVPB 11/18/19 06:00 11/23/19 05:59 11/20/19 05:40 Zolpidem Tartrate (Ambien) 5 mg HSPRN PRN ORAL Insomnia 11/17/19 22:00 11/24/19 21:59 Shade Shah MD November 20, 2019 12:34
--- NOTE | 2019-11-20 13:19 | NUR ---
DISCHARGE PLANNING PATIENT IS FROM HOME NOT READY FOR DISCHARGE TODAY ~ COVID 19 RESULTS PENDING AND WBC+12.7 LAST TEMP WAS 11/17/19 ~ 100.4
--- NOTE | 2019-11-20 15:56 | NUR ---
patient refused his IV ATB, SIGNED AMA. PATIENT PIKED UP BY HIS . HCP LUIS MADE AWARE.
--- NOTE | 2019-11-25 09:04 | Discharge Summary ---
Discharge Summary Discharge Summary _ DATE OF ADMISSION: 11/17/2019 DATE OF DISCHARGE: 11/20/2019 Patient left AGAINST MEDICAL ADVICE REASON FOR ADMISSION: 84 years old male with past medical history of diabetes, pancreatic cancer, last chemotherapy session about a week ago, presented for evaluation due to shortness of breath ,fever and generalized weakness. Patient seen by his primary care provider earlier that day prior to admission and was found to be profoundly weak . Patient was found to have a fever at home . Paramedics noted cough and shortness of breath. No vomiting or diarrhea. No nasal congestion ,shortness of breath or chest pain. Upon evaluation patient had low-grade fever 100.4, pulse oximetry was stable on room air. Laboratory work-up revealed significant leukocytosis WBC 20.9, hemoglobin 12.3, hematocrit 37.4 , platelet count 239. Lymphopenia 2% noted. INR 1.6. Stable electrolytes. BUN 31, creatinine 1.6. Glucose 210. Lactic acid 2.4. Total bilirubin 2.5 , direct bilirubin 1.1. AST 53, ALT 67. Troponin negative, pro BNP 337. Urinalysis revealed +4 glucose, +1 leukocyte esterase , borderline pyuria and few bacteria. EKG revealed sinus rhythm, no acute ischemic changes. Chest x-ray revealed no acute cardiopulmonary pathology. In emergency room patient received IV fluids ,pancultured, started on empiric antibiotics, patient received antipyretic. Patient was swabbed for COVID-19 and admitted to telemetry floor to isolation room. CONSULTANTS: pulmonary Dr. Maier ID specialist Dr. Brown pre sales architect/oncologist Dr. Rey [facility] COURSE: Patient admitted to isolation room to telemetry floor. Supportive care provided. Patient started on the IV fluids with close monitoring of volumes, renal parameters and electrolytes. Nephrotoxic's were avoided. Prior to signing AMA, BUN 26 from initial 31 and creatinine down to 1.0 from initial 1.6. Acute kidney injury resolved. At the time of this dictation, SARS-CoV-2 by PCR result came back not detected. Patient started on empiric antibiotic as per ID specialist recommendation. Blood culture negative. Leukocytosis trending down, prior to signing AMA WBC 12.7. Fevers resolved. Oncology Physician Assistant did not suspect any pneumonia, but agreed with empiric antibiotic. Hypokalemia was corrected. Pulse oximetry remained stable on room air. Pulmonary toilet provided. Per pre sales architect/oncologist, patient had metastatic pancreatic cancer, and had been on chemotherapy every 2 weeks. CA-19-9 was checked, and was in range 34. Hemoglobin and hematocrit were closely monitored with goal to keep hemoglobin above 7. No evidence of hemolysis. Prior to signing AMA, hemoglobin 10.8, hematocrit 29.9 On 11/19 patient wanted to leave. Patient was not ready for discharge since COVID-19 results was still pending, and patient still had leukocytosis, although trending down. Patient then decided to sign AGAINST MEDICAL ADVICE. The risks and consequences of signing AGAINST MEDICAL ADVICE were discussed with patient in detail. Patient verbalized understanding, nevertheless signed AMA form and left. Patient was notified of COVID 19 results by phone. FINAL DIAGNOSES: Sepsis with fever and leukocytosis-improving Suspected COVID-19 infection/pneumonia - ruled out Pancreatic cancer, metastatic Diabetes Acute kidney injury Dehydration I have been assigned to dictate discharge summary for this account. I was not involved in the patient's management. Katy Bush NP November 25, 2019 09:04
== END 2019-11-20 15:33 | disposition left against medical advice (07) | DRG 872 ==
LOC: EDBD 16:12 → EMR 17:19 → 2E 17:40 → EDBEDREQ 18:26 → 2E 11-18 21:31
DX: A41.9 Sepsis, unspecified organism (principal); N17.9 Acute kidney failure, unspecified; C25.9 Malignant neoplasm of pancreas, unspecified; C79.9 Secondary malignant neoplasm of unspecified site; E46 Unspecified protein-calorie malnutrition; N39.0 Urinary tract infection, site not specified; Z79.82 Long term (current) use of aspirin; E11.9 Type 2 diabetes mellitus without complications; Z79.899 Other long term (current) drug therapy; D63.8 Anemia in other chronic diseases classified elsewhere; E86.0 Dehydration; Z11.59 Encounter for screening for other viral diseases
CPT/HCPCS: 36415; 71045; 80048; 80053; 81003; 82248; 82550; 82553; 82962; 83605; 83735; 83880; 84100; 84484; 84550; 85007; 85025; 85610; 85730; 87040; 87635; 93005; 96361; 96365; 96366; 96368; 97803; 99291; J1815; J7030; J8499